=== PATIENT | male | born 1965 | race Caucasian/White ===

== ENCOUNTER 2025-08-18 19:09 | Inpatient (IN) ==
[2025-08-18 20:40] LABS: Hematocrit (blood only) 53.8 % (42.0-52.0); Hemoglobin 18.3 g/dL (14.0-18.0); Immature Granulocytes # (auto) 0.04 K/uL (0.01-0.20); Immature Granulocytes % (auto) 0.3 %; Mean Corpuscular Hemoglobin 30.8 pg (25.0-34.0); Mean Corpuscular Volume 90.4 fL (80.0-100.0); Platelet Count 302 K/uL (130-400); RDW Standard Deviation 47.0 fL (36.4-46.3); Red Blood Count 5.95 M/uL (4.70-6.10); White Blood Count 11.48 K/ul (4.8-10.8)
[2025-08-18 20:58] LABS: Alanine Aminotransferase 20.0 U/L (7-52); Albumin Globulin Ratio 1.2 (0.9-2); Albumin Level 4.2 gm/dl (3.4-5.0); Alkaline Phosphatase 57.0 U/L (34-104); Anion Gap 8.0 (3-11); Bilirubin,Total 0.4 mg/dl (0.2-1.0); Blood Urea Nitrogen 18.0 mg/dl (6-23); Calcium 9.0 mg/dl (8.6-10.3); Carbon Dioxide 26.0 mmol/L (21-32); Chloride 104.0 mmol/L (98-107); Creatinine Clr Calc Pharmacy 109.3 ml/min; Globulin 3.6 gm/dl (2.5-4.0); Glucose 132.0 mg/dl (70-99(Fasting)); Potassium 4.0 mmol/L (3.5-5.1); Sodium 138.0 mmol/L (136-145); Total Protein 7.8 gm/dl (6.0-8.3)
[2025-08-18 21:12] LABS: INR 0.9 (0.9-1.1); Partial Thromboplastin Time 28 Seconds (21-31); Prothrombin Time 9.8 Seconds (9.0-12.0)
[2025-08-18] MEDS: METOPROLOL TARTRATE 1 MG/ML VIAL IV STA (21:21)
[2025-08-18] MEDS: ASPIRIN CHEW 324 MG PO STA (21:21)
--- NOTE | 2025-08-18 21:21 | Emergency Department Note ---
Impression & Plan Chest pain, Elevated troponin I level, Acute non-ST elevation myocardial infarction (NSTEMI) ED Provider Note NAME: RACHAEL TA AGE: 59 SEX: M : 1965 ARRIVES VIA: Walk-In INFORMANT: Patient, ED PROVIDER(S): Cody Bruner DO CHIEF COMPLAINT: Chest pain HPI: The patient is a 59-year-old male who presented to the emergency department for an evaluation of chest pain. The patient describes episode that he had today of substernal chest pain. It was associate with diaphoresis as well as radiation to both arms and the neck. The patient states that this pain was not continuous. He has no pain at this time. He does have a strong family history of early coronary artery disease. He also has a history of tobacco use. The patient does not take any medications at this time. He has not seen a family doctor in a long time. He denies having any back pain or abdominal pain. ROS: See above HPI for pertinent positives & negatives. A total of 10 systems reviewed and were otherwise negative. PAST MEDICAL HISTORY: See Below PAST SURGICAL HISTORY: See Below FAMILY HISTORY: See Below SOCIAL HISTORY: See Below HOME MEDICATIONS: See Below ALLERGIES: See Below VITALS: See Below PHYSICAL EXAMINATION: GENERAL: Patient is awake alert in no acute distress patient is resting comfortably and showing no signs of anxiety EYES: The conjunctivae are clear. The pupils are round and reactive. EARS, NOSE, MOUTH AND THROAT: The nose is without any evidence of any deformity. NECK: The neck is nontender and supple. RESPIRATORY: Normal respiratory effort is noted there is no evidence of wheezing rhonchi or rales CARDIOVASCULAR: Regular rate and rhythm noted there no murmurs rubs or gallops normal S1 normal S2. GASTROINTESTINAL: The abdomen is soft. Abdomen is nontender. MUSCULOSKELETAL/EXTREMITIES: There is no evidence of gross deformity full range of motion is noted in the hips and shoulders. SKIN: There is no obvious evidence of any rash. There are no petechiae, pallor or cyanosis noted. NEUROLOGIC: Patient is awake alert and oriented x3 MEDICAL DECISION MAKING: The patient is a 59-year-old male who presented to the emergency department for an evaluation of chest pain. The patient had multiple episodes of chest pain at that occurred while at rest. The patient describes it as substernal chest pain that radiated to his neck as well as both arms. He became very diaphoretic. The patient became pain-free prior to coming to the emergency department. The patient does have significant risk factors including family history as well as a history of tobacco use. He was hypertensive upon arrival to the emergency department. He was treated with beta-blockers as well as aspirin in the emergency department. The patient continued to be pain-free while in the emergency department. I discussed the patient's laboratory and radiographic studies with him. I discussed the limitations of the emergency department workup for chest pain with him. Ultimately he was felt to be a good candidate for inpatient management. [facility] Triage Nursing notes reviewed. Prior medical records reviewed Vital Signs: reviewed and remarkable for elevated blood pressure. Differential diagnosis: Cardiac ischemia, aortic dissection, pulmonary embolism, pneumothorax, pneumonia, pericarditis, myocarditis, esophageal rupture, GERD, cholecystitis, pancreatitis, musculoskeletal, as well as other pathologies. ER treatment provided: See below Diagnostics interpreted by me: ECG: EKG was obtained in the emergency department. My interpretation is normal sinus rhythm at 99 bpm. There is no ectopy. There is no acute ST segment abnormalities noted. QTc was 477 ms. Cardiac Monitoring: An order was placed for continuous cardiac monitoring. The monitor shows a rate of 76 bpm with sinus rhythm. Laboratory studies: As stated above and show below. Imaging studies: See below. Radiographic imaging was reviewed by myself Consultation(s): I discussed this case with Dr. Damico who [facility]. Past Med/Surg History Problem List (Updated 08/19/25 @ 10:49 by Cody Bruner DO) Acute non-ST elevation myocardial infarction (NSTEMI) (Acute) NSTEMI (non-ST elevated myocardial infarction) Elevated troponin I level (Acute) Chest pain (Acute) Chest pain Hypertension (Chronic) History of kidney stones (Chronic) Right distal ureteral calculus (Acute) Social History Smoking Status: Current every day smoker Tobacco Type: Cigarettes Second Hand Exposure: No; Do You Dip or Chew Tobacco: No; Hx Alcohol Use: No Hx Substance Use: Yes Preferred Language: Slovenian Communication Ability: Effective Naval Gunfire Spotter Required: No Beliefs That Will Affect Care: None Current Living Situation: Spouse Feels Safe at Home: Yes Assistive Devices: None Allergies Allergies Allergy/AdvReac Type Severity Reaction Status Date / Time amoxicillin Allergy Mild hives Verified 08/19/25 09:30 poison sumac extract Allergy Unknown Rash Verified 08/19/25 09:30 Home Meds Home Medications Medication Instructions Recorded Confirmed None (Patient States No Home Meds) ##0 01/14/12 Results & Data (ED) Vital Signs Vital Signs - 24 hr 08/18/25 19:18 08/18/25 21:16 08/18/25 21:21 Temperature 36.9 C Temperature Source Temporal Artery Scan Pulse Rate 101 H 77 Pulse Rate [Apical] 89 Respiratory Rate 19 20 Respiratory Effort / Characteristics Non-Labored Spontaneous Respiratory Depth Normal Respiratory Pattern Regular Blood Pressure 200/133 H 173/97 H Blood Pressure [Right Arm] 184/120 H Blood Pressure Mean 155 Blood Pressure Mean [Right Arm] 141 Blood Pressure Position Sitting Pulse Oximetry 98 97 Oxygen Delivery Method Room Air Room Air Sepsis Recent Fever Within 48 Hours No Sepsis New/Unexplained Change in Mental Status No Sepsis Action Taken by Nursing No Action Required 08/18/25 21:27 Temperature Temperature Source Pulse Rate 76 Pulse Rate [Apical] Respiratory Rate Respiratory Effort / Characteristics Respiratory Depth Respiratory Pattern Blood Pressure Blood Pressure [Right Arm] Blood Pressure Mean Blood Pressure Mean [Right Arm] Blood Pressure Position Pulse Oximetry Oxygen Delivery Method Sepsis Recent Fever Within 48 Hours Sepsis New/Unexplained Change in Mental Status Sepsis Action Taken by Long Term Medications Current Medication List: was personally reviewed by me Laboratory Data Attestation: I reviewed the patient's lab results. 08/19/25 04:30 08/19/25 04:30 Lab Results 08/18/25 Range/Units 19:35 WBC 11.48 H (4.8-10.8) K/ul RBC 5.95 (4.70-6.10) M/uL Hgb 18.3 H (14.0-18.0) g/dL Hct 53.8 H (42.0-52.0) % MCV 90.4 (80.0-100.0) fL MCH 30.8 (25.0-34.0) pg MCHC 34.0 (32.0-36.0) g/dL RDW Std Deviation 47.0 H (36.4-46.3) fL RDW Coeff of [place] 14.3 (11.5-14.5) % Plt Count 302 (130-400) K/uL MPV 10.1 (9.4-12.4) fL Immature Gran % (Auto) 0.3 % Neut % (Auto) 61.6 % Lymph % (Auto) 27.2 % Hood % (Auto) 7.1 % Eos % (Auto) 3.2 % Baso % (Auto) 0.6 % Neut # (Auto) 7.07 H (1.40-6.50) K/uL Lymph # (Auto) 3.12 (1.20-3.40) K/uL Hood # (Auto) 0.81 H (0.11-0.59) K/uL Eos # (Auto) 0.37 (0.00-0.50) K/uL Baso # (Auto) 0.07 (0.00-0.20) K/uL Immature Gran # (Auto) 0.04 (0.01-0.20) K/uL PT 9.8 (9.0-12.0) Seconds INR 0.9 (0.9-1.1) APTT 28 (21-31) Seconds PTT Ratio 1.0 Sodium 138 (136-145) mmol/L Potassium 4.0 (3.5-5.1) mmol/L Chloride 104 (98-107) mmol/L Carbon Dioxide 26 (21-32) mmol/L Anion Gap 8 (3-11) BUN 18 (6-23) mg/dl Creatinine 0.90 (0.6-1.4) mg/dl Est Cr Clr Drug Dosing 109.3 ml/min eGFR 99.00 BUN/Creatinine Ratio 20.0 (10-20) Glucose 132 H (70-99(Fasting)) mg/dl Calcium 9.0 (8.6-10.3) mg/dl Total Bilirubin 0.4 (0.2-1.0) mg/dl AST 17 (13-39) U/L ALT 20 (7-52) U/L Alkaline Phosphatase 57 (34-104) U/L Troponin I High Sens 59.0 H* (0-20) pg/ml Total Protein 7.8 (6.0-8.3) gm/dl Albumin 4.2 (3.4-5.0) gm/dl Globulin 3.6 (2.5-4.0) gm/dl Albumin/Globulin Ratio 1.2 (0.9-2) Administered Medications Acetaminophen (Acetaminophen 325 Mg Tab) 650 mg PO Q4H PRN PRN Reason: Pain or Fever Stop: 09/17/25 22:42 Last Admin: 08/19/25 07:26 Dose: 650 mg Documented By: Aspirin (Aspirin 81 Mg Ectab) 81 mg PO QAM [facility] Stop: 09/18/25 08:59 Last Admin: 08/19/25 08:06 Dose: 81 mg Documented By: NAIZA Heparin Sodium/Dextrose (Heparin 66631 Unit/500 Ml D5w) 25,000 units in 500 mls @ 31 mls/hr IV .Q16H8M [facility]; Protocol Stop: 09/18/25 00:44 Last Titration: 08/19/25 08:38 Dose: 1,550 units/hr, 31 mls/hr Documented By: NAZIA Co-signed By: JUANI Admin: 08/19/25 01:24 Dose: 1,550 units/hr, 31 mls/hr Documented By: jhonatan Co-signed By: SARITHA Nitroglycerin (Nitroglycerin 2% Ointment 30gm Tube) 0.5 inch EXT Q6H [facility] Stop: 09/17/25 22:59 Last Admin: 08/19/25 06:05 Dose: 0.5 inch Documented By: jhonatan Admin: 08/19/25 00:33 Dose: 0.5 inch Documented By: jhonatan Discontinued Medications Aspirin (Aspirin Chew 324 Mg) 324 mg PO NOW STA Stop: 08/18/25 21:19 Last Admin: 08/18/25 21:21 Dose: 324 mg Documented By: megan Fentanyl Citrate (Fentanyl Citrate Pf 100 Mcg/2 Ml Vial) Confirm Administered Dose 100 mcg .ROUTE .STK-MED ONE Stop: 08/19/25 09:28 Last Increment: 08/19/25 10:38 Dose: 75 mcg Documented By: WINTER Heparin Sodium (Porcine) (Heparin Sod (Porcine) 1000 Unit/Ml) 7,000 units IV NOW ONE Stop: 08/19/25 00:42 Last Admin: 08/19/25 01:21 Dose: 7,000 units Documented By: jhonatan Co-signed By: SARITHA Heparin Sodium (Porcine) (Heparin (Porcine) 1000 Unit/Ml 10 Ml (Transportation Engineer Use Only)) Confirm Administered Dose 10,000 units .ROUTE .STK-MED ONE Stop: 08/19/25 09:27 Last Admin: 08/19/25 10:37 Dose: 9,500 units Documented By: WINTER Heparin Sodium/Dextrose (Heparin Iv Adult Wt-Based Standard W/ Initial Bolus Protocol) 1 each IV NOW STA; Protocol Stop: 08/19/25 00:26 Last Admin: 08/19/25 01:28 Dose: 1 each Documented By: jhonatan Heparin Sodium/Sodium Chloride (Heparin In Nss Infusion 1000 Unit/500 Ml (2 U/Ml) Bag) Confirm Administered Dose 3,000 units IV .STK-MED ONE Stop: 08/19/25 09:28 Last Admin: 08/19/25 09:51 Dose: 3,000 units Documented By: WINTER Hydralazine HCl (Hydralazine Hcl 20 Mg/Ml Vial) Confirm Administered Dose 20 mg .ROUTE .STK-MED ONE Stop: 08/19/25 10:22 Last Increment: 08/19/25 10:38 Dose: 10 mg Documented By: WINTER Ioversol (Optiray 350) Confirm Administered Dose 1 ml .ROUTE .STK-MED ONE Stop: 08/19/25 09:28 Last Admin: 08/19/25 10:38 Dose: 150 ml Documented By: WINTER Metoprolol Tartrate (Metoprolol Tartrate 1 Mg/Ml Vial) 5 mg IV NOW STA Stop: 08/18/25 21:19 Last Admin: 08/18/25 21:21 Dose: 5 mg Documented By: megan Midazolam HCl (Midazolam Hcl 1 Mg/Ml 2ml Vial) Confirm Administered Dose 2 mg .ROUTE .STK-MED ONE Stop: 08/19/25 09:27 Last Increment: 08/19/25 10:37 Dose: 1 mg Documented By: WINTER Midazolam HCl (Midazolam Hcl 1 Mg/Ml 2ml Vial) Confirm Administered Dose 2 mg .ROUTE .STK-MED ONE Stop: 08/19/25 10:21 Last Admin: 08/19/25 10:38 Dose: 2 mg Documented By: WINTER Nicardipine HCl (Nicardipine 2,000 Mcg/20 Ml Syr) Confirm Administered Dose 2,000 mcg .ROUTE .STK-MED ONE Stop: 08/19/25 09:28 Last Admin: 08/19/25 09:52 Dose: 2,000 mcg Documented By: WINTER Nitroglycerin/Dextrose (Nitroglycerin/D5w 100mcg/Ml 20ml Syr) Confirm Administered Dose 2,000 mcg .ROUTE .STK-MED ONE Stop: 08/19/25 09:28 Last Admin: 08/19/25 09:52 Dose: 2,000 mcg Documented By: WINTER Ticagrelor (Ticagrelor 90 Mg Tab) Confirm Administered Dose 180 mg .ROUTE .STK- MED ONE Stop: 08/19/25 10:34 Last Admin: 08/19/25 10:39 Dose: 180 mg Documented By: WINTER Imaging Data Attestation: I personally reviewed and interpreted this imaging study as follows: My Impression: 1 view chest x-ray was obtained in the emergency department. My interpretation is no free air or definite infiltrate, final report below. Radiologist's Impression: Chest X-Ray 08/18/25 20:20 Exam(s): XR CXR 1 VIEW EXAM: XR Chest, 1 View CLINICAL HISTORY: Reason for exam: Chest pain, nonspecific. TECHNIQUE: Frontal view of the chest. COMPARISON: No relevant prior studies available. FINDINGS: Lungs: No consolidation. No overt edema. Pleural space: No pleural effusion. No pneumothorax. Heart: Unremarkable. No cardiomegaly. IMPRESSION: No acute cardiopulmonary abnormality. Electronically signed by: Nazario Bassett MD 08/18/25 22:24 PM Discharge Plan Visit Data Chief Complaint: Chest Pain Stated Complaint: CHEST PAIN PAST HR, SLIGHT SOB, ARM PAIN (BOTH) ED Provider: Cody Bruner Discharge Problem: Chest pain, Elevated troponin I level, Acute non-ST elevation myocardial infarction (NSTEMI) Patient Disposition: Being Evaluated by Hospitalist Condition: Fair Discharge Instructions Interventions: ED Discharge Assessment Last Done: 08/18/25 22:44
--- NOTE | 2025-08-18 22:25 | XRay Report ---
Exam(s): XR CXR 1 VIEW EXAM: XR Chest, 1 View CLINICAL HISTORY: Reason for exam: Chest pain, nonspecific. TECHNIQUE: Frontal view of the chest. COMPARISON: No relevant prior studies available. FINDINGS: Lungs: No consolidation. No overt edema. Pleural space: No pleural effusion. No pneumothorax. Heart: Unremarkable. No cardiomegaly. IMPRESSION: No acute cardiopulmonary abnormality. Electronically signed by: Nazario Bassett MD 08/18/25 22:24 PM
[2025-08-18] MEDS ORDERED: NITROGLYCERIN SL 0.4 MG/TAB TAB SL PRN (22:43)
[2025-08-18] MEDS ORDERED: POLYETHYLENE (MIRALAX) 17 GM PACK PO PRN (22:43)
--- NOTE | 2025-08-18 22:51 | History & Physical Report ---
Date of Service August 18, 2025 Assessment & Plan (1) Chest pain: Plan: 59-year-old male with no significant past medical history except for kidney stones and not on any medications and not been to doctors since last 2 years since his PCP retired comes with chest pain. Around 6:30 PM today patient was watching TV when he noticed pain in the middle of the chest radiating to his neck and to his right upper hand and it was about 9/10 in severity. The pain l asted about 1 hour. Currently patient does not have any pain. Patient had similar kind of episode couple of weeks ago thought to be indigestion and lasted about 1 hour. Does not ambulate much because of hip and knee pains. Denies shortness of breath. Has smoker's cough. No runny nose or sore throat. Afebrile. Has some mild headache. During the episode felt dizzy. Somewhat sweaty. No nausea. No abdominal pain. Normal bowel and bladder movements. Blood pressure was high when he came to the ER. And received IV Lopressor. Also received aspirin. Resting comfortably currently. Chest pain Currently resolved EKG okay Initial troponin 59. Recheck trending up. On IV heparin Received full dose aspirin and IV Lopressor in the ER Will continue with daily aspirin, and Nitropaste for now Will follow serial cardiac enzymes and echo Will check lipid profile and HbA1c levels in a.m. Telemetry N.p.o. Cardio consult in a.m. Hypertension Elevated in 200s on presentation Received IV Lopressor Will place on Nitropaste and monitor Tobacco abuse Counseling Elevated hemoglobin 18.3 Possibly from smoking Will follow repeat labs DVT prophylaxis SCDs Disposition Telemetry Full code. History of Present Illness Chief Complaint: Chest pain Primary Care Provider: NO PCP 59-year-old male with no significant past medical history except for kidney stones and not on any medications and not been to doctors since last 2 years since his PCP retired comes with chest pain. Around 6:30 PM today patient was watching TV when he noticed pain in the middle of the chest radiating to his neck and to his right upper hand and it was about 9/10 in severity. The pain lasted about 1 hour. Currently patient does not have any pain. Patient had similar kind of episode couple of weeks ago thought to be indigestion and lasted about 1 hour. Does not ambulate much because of hip and knee pains. Denies shortness of breath. Has smoker's cough. No runny nose or sore throat. Afebrile. Has some mild headache. During the episode felt dizzy. Somewhat sweaty. No nausea. No abdominal pain. Normal bowel and bladder movements. Blood pressure was high when he came to the ER. And received IV Lopressor. Also received aspirin. Resting comfortably currently. Past medical history. As mentioned above. Past surgical history. No surgeries on file Social history. Smokes 1 pack cigarettes for many years. Denies any alcohol. Smokes marijuana daily. Family history. Father age of 45 probably from heart disease. Mother has hypertension, pacemaker, amputation of both lower extremities from peripheral vascular disease. Allergies Allergy/AdvReac Type Severity Reaction Status Date / Time amoxicillin Allergy Mild hives Verified 02/26/16 08:40 poison sumac extract Allergy Unknown Rash Verified 08/18/25 22:48 Home Medications Medication Instructions Recorded Confirmed Type None (Patient States No Home Meds) ##0 01/14/12 History Past Med/Surg History Problem List (Updated 08/18/25 @ 23:08 by Cody Bruner DO) Elevated troponin I level (Acute) Chest pain (Acute) Chest pain Hypertension (Chronic) History of kidney stones (Chronic) Right distal ureteral calculus (Acute) Social History Smoking Status: Current every day smoker Tobacco Type: Cigarettes Second Hand Exposure: No; Do You Dip or Chew Tobacco: No; Hx Alcohol Use: No Hx Substance Use: Yes Preferred Language: Tuvaluan Communication Ability: Effective Staff Development Coordinator Rn Required: No Beliefs That Will Affect Care: None Current Living Situation: Spouse Other Information That Helps Us Care for You: No Feels Safe at Home: Yes Safety Concerns: Feels Safe At This Time Assistive Devices: None Review of Systems Review of Systems: All systems reviewed & are unremarkable except as noted in HPI & below Physical Exam Physical Exam: General- Not in distress. Head- atraumatic Eyes- PERRL. ENT- oropharynx clear Neck- supple, no JVD. Lungs- clear to auscultation no wheezing or crackles Heart- regular rhythm; no murmur, no gallop. Abdomen- normal bowel sounds, soft, nontender, no distension. Extremities- no pretibial edema, no erythema seen. Neuro- alert, oriented PERRL, no facial palsy; no dysarthria; moves extremities Results & Data Results & Data Vital Signs (Past 12 Hours) Vital Signs Temp Pulse Pulse Resp BP BP Pulse Ox 08/18/25 21:27 76 08/18/25 21:21 77 173/97 H 08/18/25 21:16 89 20 184/120 H 97 08/18/25 19:18 36.9 C 101 H 19 200/133 H 98 O2 Del Method 08/18/25 21:27 08/18/25 21:21 08/18/25 21:16 Room Air 08/18/25 19:18 Room Air Diagnostic Findings Laboratory Results WBC 11.48 K/ul (4.8-10.8) H 08/18/25 19:35 RBC 5.95 M/uL (4.70-6.10) 08/18/25 19:35 Hgb 18.3 g/dL (14.0-18.0) H 08/18/25 19:35 Hct 53.8 % (42.0-52.0) H 08/18/25 19:35 MCV 90.4 fL (80.0-100.0) 08/18/25 19:35 MCH 30.8 pg (25.0-34.0) 08/18/25 19:35 MCHC 34.0 g/dL (32.0-36.0) 08/18/25 19:35 RDW Std Deviation 47.0 fL (36.4-46.3) H 08/18/25 19:35 RDW Coeff of [place] 14.3 % (11.5-14.5) 08/18/25 19:35 Plt Count 302 K/uL (130-400) 08/18/25 19:35 MPV 10.1 fL (9.4-12.4) 08/18/25 19:35 Immature Gran % (Auto) 0.3 % 08/18/25 19:35 Neut % (Auto) 61.6 % 08/18/25 19:35 Lymph % (Auto) 27.2 % 08/18/25 19:35 Mcleod % (Auto) 7.1 % 08/18/25 19:35 Eos % (Auto) 3.2 % 08/18/25 19:35 Baso % (Auto) 0.6 % 08/18/25 19:35 Neut # (Auto) 7.07 K/uL (1.40-6.50) H 08/18/25 19:35 Lymph # (Auto) 3.12 K/uL (1.20-3.40) 08/18/25 19:35 Mcleod # (Auto) 0.81 K/uL (0.11-0.59) H 08/18/25 19:35 Eos # (Auto) 0.37 K/uL (0.00-0.50) 08/18/25 19:35 Baso # (Auto) 0.07 K/uL (0.00-0.20) 08/18/25 19:35 Immature Gran # (Auto) 0.04 K/uL (0.01-0.20) 08/18/25 19:35 PT 9.8 Seconds (9.0-12.0) 08/18/25 19:35 INR 0.9 (0.9-1.1) 08/18/25 19:35 APTT 28 Seconds (21-31) 08/18/25 19:35 PTT Ratio 1.0 08/18/25 19:35 Sodium 138 mmol/L (136-145) 08/18/25 19:35 Potassium 4.0 mmol/L (3.5-5.1) 08/18/25 19:35 Chloride 104 mmol/L (98-107) 08/18/25 19:35 Carbon Dioxide 26 mmol/L (21-32) 08/18/25 19:35 Anion Gap 8 (3-11) 08/18/25 19:35 BUN 18 mg/dl (6-23) 08/18/25 19:35 Creatinine 0.90 mg/dl (0.6-1.4) 08/18/25 19:35 Est Cr Clr Drug Dosing 109.3 ml/min 08/18/25 19:35 eGFR 99.00 08/18/25 19:35 BUN/Creatinine Ratio 20.0 (10-20) 08/18/25 19:35 Glucose 132 mg/dl (70-99(Fasting)) H 08/18/25 19:35 Calcium 9.0 mg/dl (8.6-10.3) 08/18/25 19:35 Total Bilirubin 0.4 mg/dl (0.2-1.0) 08/18/25 19:35 AST 17 U/L (13-39) 08/18/25 19:35 ALT 20 U/L (7-52) 08/18/25 19:35 Alkaline Phosphatase 57 U/L (34-104) 08/18/25 19:35 Troponin I High Sens 59.0 pg/ml (0-20) H* 08/18/25 19:35 Total Protein 7.8 gm/dl (6.0-8.3) 08/18/25 19:35 Albumin 4.2 gm/dl (3.4-5.0) 08/18/25 19:35 Globulin 3.6 gm/dl (2.5-4.0) 08/18/25 19:35 Albumin/Globulin Ratio 1.2 (0.9-2) 08/18/25 19:35 Impressions Chest X-Ray 08/18/25 20:20 Exam(s): XR CXR 1 VIEW EXAM: XR Chest, 1 View CLINICAL HISTORY: Reason for exam: Chest pain, nonspecific. TECHNIQUE: Frontal view of the chest. COMPARISON: No relevant prior studies available. FINDINGS: Lungs: No consolidation. No overt edema. Pleural space: No pleural effusion. No pneumothorax. Heart: Unremarkable. No cardiomegaly. IMPRESSION: No acute cardiopulmonary abnormality. Electronically signed by: Nazario Bassett MD 08/18/25 22:24 PM ECG Additional Comments: ECG. Normal sinus rhythm rate of 99. No acute ST changes seen. QTc 477. Code Status & VTE Plan VTE Prophylaxis Plan VTE Prophylaxis will be ordered: Yes
[2025-08-19] MEDS: NITROGLYCERIN 2% OINTMENT 30GM TUBE EXT SCH (00:33)
[2025-08-19] MEDS: HEPARIN SOD (PORCINE) 1000 UNIT/ML IV ONE (01:21)
[2025-08-19] MEDS: HEPARIN 25000 UNIT/500 ML D5W 25,000 UNITS/500 ML BAG IV SCH (01:24)
[2025-08-19] MEDS: Heparin IV Adult Wt-Based Standard w/ INITIAL Bolus Protocol IV STA (01:28)
[2025-08-19 05:43] LABS: Hematocrit (blood only) 50.0 % (42.0-52.0); Hemoglobin 17.6 g/dL (14.0-18.0); Immature Granulocytes # (auto) 0.04 K/uL (0.01-0.20); Immature Granulocytes % (auto) 0.4 %; Mean Corpuscular Hemoglobin 31.7 pg (25.0-34.0); Mean Corpuscular Volume 90.1 fL (80.0-100.0); Platelet Count 279 K/uL (130-400); RDW Standard Deviation 46.5 fL (36.4-46.3); Red Blood Count 5.55 M/uL (4.70-6.10); White Blood Count 10.94 K/ul (4.8-10.8)
[2025-08-19 06:04] LABS: Anion Gap 9.0 (3-11); Blood Urea Nitrogen 16.0 mg/dl (6-23); Calcium 8.4 mg/dl (8.6-10.3); Carbon Dioxide 24.0 mmol/L (21-32); Chloride 106.0 mmol/L (98-107); Cholesterol 205.0 mg/dl (0-200); Creatinine Clr Calc Pharmacy 136.6 ml/min; Glucose 101.0 mg/dl (70-99(Fasting)); HDL Cholesterol 29.0 mg/dl; Magnesium 2.0 mg/dl (1.7-2.4); Potassium 4.0 mmol/L (3.5-5.1); Sodium 139.0 mmol/L (136-145); Triglycerides 195.0 mg/dl (0-150)
[2025-08-19] MEDS: ACETAMINOPHEN 325 MG TAB PO PRN (07:26)
[2025-08-19 07:49] LABS: Hemoglobin A1C 6.0 % (4.5-5.6)
[2025-08-19] MEDS: ASPIRIN 81 MG ECTAB PO SCH (08:06)
[2025-08-19 08:24] LABS: ANTI-Xa, UFH(UnfractionatedHep 0.41 IU/ml (0.3-0.7)
--- NOTE | 2025-08-19 08:25 | Cardiology Consultation ---
Date of Consultation August 19, 2025 Assessment & Plan (1) NSTEMI (non-ST elevated myocardial infarction): (2) Elevated troponin I level: (3) Chest pain: (4) Hypertension: Plan Patient is a 59 year old male admitted to [facility] after substernal chest pain/pressure radiating down both arms. No acute ischemic EKG changes. No ST elevation. Elevated troponin noted, peaking at 225. Started on IV heparin. Echo with mildly reduced LVEF with apical anterior and apical lateral wall motion abnormality concerning for ischemic heart disease Uncontrolled hypertension also noted on arrival, improving with IV metoprolol and nitro paste Patient seen/evaluated today in collaboration with attending hall manager Dr. Sanderson. Given his symptoms, abnormal echo, and elevated troponin, recommend proceeding with diagnostic cardiac catheterization for further evaluation. Risks/benefits of procedure discussed. Patient is agreeable and understanding. He remains NPO. Case was then discussed with SC goggles assembler, Dr. Sears. Cardiac cath planned for this morning. Will likely need ASA, statin, antiplatelet therapy, and other GDMT after cath. Further recommendations pending results of cardiac catheterization I spent a total of 60 minutes on the date of service in preparation, delivery, and documentation of the care provided to this patient, excluding any time spent in the performance of separately billed services. Eva Milian PA-C Department of Cardiology, [facility] This chart was completed in part utilizing Speech Voice Recognition Software. Grammatical errors, random word insertions, pronoun errors, and incomplete sentences are an occasional consequence of this system due to software limitations, ambient noise, and hardware issues. Any formal questions or concerns about the content, text, or information contained within the body of this dictation should be directly addressed to the provider for clarification. Supervising Physician Co-Signing Physician Notes Patient seen and examined. Past medical history, surgical history, social history and family history have been reviewed. The medical record and all the above studies have been reviewed. Case DW JEAN PAUL including management. NSTEMI HTN - accelerated HLD ASA, IV Heparin, statin metoprolol Losartan cardiac cath procedure, RIBA dw patient -> he understands and agrees to proceed Case DW goggles assembler -> agreed for card cath and possible PCI adjust anti-HTN meds keeping systolic BP between 100-140 mmHg DVT prophylaxis smoking cessation salt restricted diet GDMT for CAD History of Present Illness Reason for Consultation: Chest pain; Elevated troponin Requesting Physician: [facility] Attending Physician: Dr. Sanderson History of Present Illness Patient is a 59-year-old male presenting to [facility] last night after an episode of substernal chest pain radiating down both arms lasting approximately 15 minutes. Symptoms occurred at rest. Resolved spontaneously. He also reported shortness of breath and diaphoresis with the episode. He had a similar episode occurring about 1-2 weeks ago, also lasting 10-15 minutes at rest. He thought he had "indigestion". He as not been to see his family physician since they retired nearly 2 years ago. Previously told he had high BP and dyslipidemia but declined medications. Managed with "diet". He notes chronic tobacco abuse, smoking 1.5 PPD. Family history of possible premature CAD/SCD in his father age 45. Due to his severe chest pain last night he presented to the ER for evaluation. EKG on arrival demonstrating NSR, no acute ischemic changes noted. No prior for comparison. BP was uncontrolled at 200/130 on arrival. Treated with ASA, nitro paste, metoprolol on arrival. BP slowly trended down. HS troponin was elevated at 59 - increasing to 225 - and then 201 this morning. He was started on IV heparin for NSTEMI. Chest pain had resolved at time of presentation to the ER, but he notes b/l shoulder "ache/tightness". At time of consult, patient resting in bed comfortably. No recurrent chest pain overnight. He does admit to being clammy and diaphoretic this morning. BP much improved. No dizziness or lightheadedness. No arrhythmias on telemetry No orthopnea, PND or edema. No bleeding issues. Hbg stable. Normal creatinine. Allergies Allergy/AdvReac Type Severity Reaction Status Date / Time amoxicillin Allergy Mild hives Verified 08/19/25 09:30 poison sumac extract Allergy Unknown Rash Verified 08/19/25 09:30 Home Medications Medication Instructions Recorded Confirmed Type None (Patient States No Home Meds) ##0 01/14/12 History Patient History Social History Smoking Status: Current every day smoker Tobacco Type: Cigarettes Second Hand Exposure: No; Do You Dip or Chew Tobacco: No; Hx Alcohol Use: No Hx Substance Use: Yes Preferred Language: Thai Communication Ability: Effective Key Punch Teacher Required: No Beliefs That Will Affect Care: None Current Living Situation: Spouse Feels Safe at Home: Yes Assistive Devices: Cane Review of Systems Review of Systems: All systems reviewed & are unremarkable except as noted in HPI & below Physical Exam Constitutional: WD/WN, vitals as above average body habitus; no acute distress Neck: trachea midline, no thyromegaly + thick neck Respiratory: normal respiratory effort; no labored breathing Auscultation: lungs clear to auscultation bilaterally Gastrointestinal (Abdomen): normal bowel sounds, soft, nontender, no hepatosplenomegaly Neurologic: PERRL, EOMI, accommodation nl, no face palsy, no dysarthria Psychiatric: A+Ox3, euthymic affect Results & Data Vital Signs (Past 12 Hours) Vital Signs Pulse Pulse Resp BP BP Pulse Ox Pulse Ox 08/19/25 08:05 70 122/67 08/19/25 07:49 69 08/19/25 06:05 72 20 136/78 93 08/19/25 02:00 08/19/25 02:00 71 20 159/85 H 92 08/19/25 01:28 84 157/90 H 95 08/19/25 01:08 71 08/19/25 00:47 08/19/25 00:23 95 08/19/25 00:23 69 16 172/99 H 95 08/18/25 21:27 76 08/18/25 21:21 77 173/97 H 08/18/25 21:16 89 20 184/120 H 97 O2 Del Method O2 Del Method 08/19/25 08:05 08/19/25 07:49 08/19/25 06:05 Room Air 08/19/25 02:00 Room Air 08/19/25 02:00 Room Air 08/19/25 01:28 Room Air 08/19/25 01:08 08/19/25 00:47 Room Air 08/19/25 00:23 Room Air 08/19/25 00:23 Room Air 08/18/25 21:27 08/18/25 21:21 08/18/25 21:16 Room Air Laboratory Results Cardiac Enzymes 08/18/25 08/18/25 08/19/25 Range/Units 19:35 22:41 04:30 AST 17 (13-39) U/L Troponin I High Sens 59.0 H* 225.1 H* D 201.7 H* (0-20) pg/ml Coagulation 08/18/25 Range/Units 19:35 PT 9.8 (9.0-12.0) Seconds APTT 28 (21-31) Seconds Lipids 08/19/25 Range/Units 04:30 Triglycerides 195 H (0-150) mg/dl Cholesterol 205 H (0-200) mg/dl HDL Cholesterol 29 mg/dl Cholesterol/HDL Ratio 7.1 H (0-5) CBC 08/18/25 08/19/25 Range/Units 19:35 04:30 WBC 11.48 H 10.94 H (4.8-10.8) K/ul RBC 5.95 5.55 (4.70-6.10) M/uL Hgb 18.3 H 17.6 (14.0-18.0) g/dL Hct 53.8 H 50.0 (42.0-52.0) % Plt Count 302 279 (130-400) K/uL Neut # (Auto) 7.07 H 5.34 (1.40-6.50) K/uL Lymph # (Auto) 3.12 4.33 H (1.20-3.40) K/uL [place] # (Auto) 0.81 H 0.68 H (0.11-0.59) K/uL Eos # (Auto) 0.37 0.47 (0.00-0.50) K/uL Baso # (Auto) 0.07 0.08 (0.00-0.20) K/uL Comprehensive Metabolic Panel 08/18/25 08/19/25 Range/Units 19:35 04:30 Sodium 138 139 (136-145) mmol/L Potassium 4.0 4.0 (3.5-5.1) mmol/L Chloride 104 106 (98-107) mmol/L Carbon Dioxide 26 24 (21-32) mmol/L BUN 18 16 (6-23) mg/dl Creatinine 0.90 0.72 (0.6-1.4) mg/dl Glucose 132 H 101 H (70-99(Fasting)) mg/dl Calcium 9.0 8.4 L (8.6-10.3) mg/dl AST 17 (13-39) U/L ALT 20 (7-52) U/L Alkaline Phosphatase 57 (34-104) U/L Total Protein 7.8 (6.0-8.3) gm/dl Albumin 4.2 (3.4-5.0) gm/dl Intake and Output 08/18/25 08/19/25 08/19/25 22:59 06:59 14:59 Intake Total 224.233 / 224.233 Balance 224.233 / 224.233 Intake: IV 224.233 / 224.233 Heparin 51853 Unit/500 ml D5w 224.233 / 224.233 25,000 units In 500 ml @ 1,550 UNITS/HR 31 mls/hr IV .Q16H8M [facility] Rx#:[id number] Other: Weight 106.4 kg 106.4 kg Weight Measurement Method Chair Scale [facility] Diagnostic Findings Telemetry reviewed: NSR, no arrhythmias noted. EKG reviewed from admission, 08/18: NSR, normal EKG No prior for comparison Echo report reviewed: Mildly reduced LVEF at 45-50% Grade I diastolic dysfunction Apical anterior akinesis, apical lateral severe hypokinesis, apical akinesis Mild MR Chest X-Ray 08/18/25 20:20 Exam(s): XR CXR 1 VIEW EXAM: XR Chest, 1 View CLINICAL HISTORY: Reason for exam: Chest pain, nonspecific. TECHNIQUE: Frontal view of the chest. COMPARISON: No relevant prior studies available. FINDINGS: Lungs: No consolidation. No overt edema. Pleural space: No pleural effusion. No pneumothorax. Heart: Unremarkable. No cardiomegaly. IMPRESSION: No acute cardiopulmonary abnormality. Electronically signed by: Nazario Bassett MD 08/18/25 22:24 PM Medications Administered Current Inpatient Medications Acetaminophen (Acetaminophen 325 Mg Tab) 650 mg PO Q4H PRN PRN Reason: Pain or Fever Stop: 09/17/25 22:42 Last Admin: 08/19/25 07:26 Dose: 650 mg Aspirin (Aspirin 81 Mg Ectab) [facility] [place] Stop: 09/18/25 08:59 Last Admin: 08/19/25 08:06 Dose: 81 mg Heparin Sodium/Dextrose (Heparin 65137 Unit/500 Ml D5w) 25,000 units in 500 mls @ 31 mls/hr IV .Q16H8M [facility]; Protocol Stop: 09/18/25 00:44 Last Titration: 08/19/25 08:38 Dose: 1,550 units/hr, 31 mls/hr Nitroglycerin (Nitroglycerin Sl 0.4 Mg/Tab Tab) 0.4 mg SL Q5M PRN PRN Reason: Chest Pain Stop: 09/17/25 22:42 Nitroglycerin (Nitroglycerin 2% Ointment 30gm Tube) 0.5 inch EXT Q6H NAT Stop: 09/17/25 22:59 Last Admin: 08/19/25 06:05 Dose: 0.5 inch Polyethylene Glycol (Polyethylene (Miralax) 17 Gm Pack) 17 gm PO DAILY PRN PRN Reason: Constipation Stop: 09/17/25 22:42 PG Care Time/CCT Total # of Minutes Spent Total Time Spent with Patient: Total time spent is greater than 50% in coordination of care (as documented) at patient's floor/unit and/or counseling patient: 60 minutes Coding Level of Care Code 34918 IN/OBS CONSULT LVL 5,80M Diagnoses NSTEMI (non-ST elevated myocardial infarction) I21.4 Elevated troponin I level R79.89 Chest pain R07.9 Hypertension I10
--- NOTE | 2025-08-19 08:25 | XCELERA ---
[id number]
--- NOTE | 2025-08-19 09:30 | Pre Anesthesia Assessment ---
Date of Service August 19, 2025 Pre Sedation Assessment Vital Signs Temp Pulse Pulse Resp BP BP Pulse Ox 08/19/25 09:18 69 18 157/83 H 94 08/19/25 09:00 69 16 154/89 H 94 08/19/25 08:05 70 122/67 08/19/25 07:49 69 08/19/25 06:05 72 20 136/78 93 08/19/25 02:00 08/19/25 02:00 71 20 159/85 H 92 08/19/25 01:28 84 157/90 H 95 08/19/25 01:08 71 08/19/25 00:47 08/19/25 00:23 08/19/25 00:23 69 16 172/99 H 95 08/18/25 21:27 76 08/18/25 21:21 77 173/97 H 08/18/25 21:16 89 20 184/120 H 97 08/18/25 19:18 36.9 C 101 H 19 200/133 H 98 Pulse Ox O2 Del Method O2 Del Method 08/19/25 09:18 Room Air 08/19/25 09:00 Room Air 08/19/25 08:05 08/19/25 07:49 08/19/25 06:05 Room Air 08/19/25 02:00 Room Air 08/19/25 02:00 Room Air 08/19/25 01:28 Room Air 08/19/25 01:08 08/19/25 00:47 Room Air 08/19/25 00:23 95 Room Air 08/19/25 00:23 Room Air 08/18/25 21:27 08/18/25 21:21 08/18/25 21:16 Room Air 08/18/25 19:18 Room Air Cardiovascular RRR, no murmur, no edema Respiratory normal respiratory effort, lungs clear to auscultation Pre-Sedation Airway Assessment Smoking Status: Current every day smoker Hx Sleep Apnea: No Short, Thick Neck: No Thyromental Distance: > or= 3.5 Finger Breadths Oral Cavity: + WNL Mallampati Class: III ASA: ASA3 NPO Status Date of Last Intake of Fluids: 08/19/25 Time of Last Intake of Fluids: 08:00 Date of Last Intake of Solid Food: 08/18/25 Time of Last Intake of Solid Foods: 16:00 Notes The planned sedation has been discussed with the patient. Informed Consent was obtained. I have identified the patient, determined the appropriateness of sedation and have assessed the patient immediately prior to the procedure. All medicine(s) and interventions are by my order.
[2025-08-19] MEDS: niCARdipine 2,000 MCG/20 ML SYR ONE (09:52)
[2025-08-19] MEDS: NITROGLYCERIN/D5W 100MCG/ML 20ML SYR ONE (09:52)
[2025-08-19] MEDS: MIDAZOLAM HCL 1 MG/ML 2ML VIAL ONE ×2 (10:37→10:38)
[2025-08-19] MEDS: HEPARIN (PORCINE) 1000 UNIT/ML 10 ML (CATH LAB USE ONLY) ONE (10:37)
[2025-08-19] MEDS: OPTIRAY 350 ONE (10:38)
[2025-08-19] MEDS: TICAGRELOR 90 MG TAB ONE (10:39)
--- NOTE | 2025-08-19 10:46 | Post Anesthesia Assessment ---
Date of Service August 19, 2025 Post Sedation Assessment Vital Signs Temp Pulse Pulse Resp BP BP Pulse Ox 08/19/25 09:18 69 18 157/83 H 94 08/19/25 09:00 69 16 154/89 H 94 08/19/25 08:05 70 122/67 08/19/25 07:49 69 08/19/25 06:05 72 20 136/78 93 08/19/25 02:00 08/19/25 02:00 71 20 159/85 H 92 08/19/25 01:28 84 157/90 H 95 08/19/25 01:08 71 08/19/25 00:47 08/19/25 00:23 08/19/25 00:23 69 16 172/99 H 95 08/18/25 21:27 76 08/18/25 21:21 77 173/97 H 08/18/25 21:16 89 20 184/120 H 97 08/18/25 19:18 36.9 C 101 H 19 200/133 H 98 Pulse Ox O2 Del Method O2 Del Method 08/19/25 09:18 Room Air 08/19/25 09:00 Room Air 08/19/25 08:05 08/19/25 07:49 08/19/25 06:05 Room Air 08/19/25 02:00 Room Air 08/19/25 02:00 Room Air 08/19/25 01:28 Room Air 08/19/25 01:08 08/19/25 00:47 Room Air 08/19/25 00:23 95 Room Air 08/19/25 00:23 Room Air 08/18/25 21:27 08/18/25 21:21 08/18/25 21:16 Room Air 08/18/25 19:18 Room Air Recovery Score Activity: Moves 4 extremities Respiration: Deep Breath/Cough Circulation: +/-20% PreAnes Value Consciousness: Fully Awake Oxygen Saturation: > 92% On Room Air Discharge Sedation Level of Care: Fast Track Phase II Post Sedation Plan On clinical assessment, the patient appears to have tolerated the sedation without complications. Patient is recovering as anticipated. Patient will continue to be monitored by nursing and may be discharged when sedation discharge criteria are met per below protocol. Upon Completions of procedure up to 15 minutes continue every 5 minute vital signs and the P.A.R. score; then discharge to a Phase I or Fast Track to Phase II per the following guidelines: * Discharge Patient to appropriate Phase II area if PAR is 8 or greater or return to pre- procedure baseline. The post - procedure orders will be as directed. * If PAR score is less than 8 or not return to pre-procedure baseline then patient will follow Phase I monitoring till PAR is reached for Phase II. The Phase I may be done in procedure room or may call to secure a Phase I area. * If naloxone or flumazenil are used for reversal, hold in Phase I for continued monitoring from when last reversal dose was given for a minimum of 60 minutes or longer pending the nurse and/or physician discretion of patient condition before discharge to Phase II. Please call the Sedation Physician to re-evaluate and complete post-note for discharge to Phase II area. Do NOT discharge from procedure sedation or Phase 1 until post- sedation evaluation note is complete by procedure /sedation MD Sedation Discharge Instructions to be given to the patient at discharge to home.
--- NOTE | 2025-08-19 11:18 | Cardiac Catheterization ---
[facility] Data: Rubber Goods Cutter Finisher Cardiac Status Clinical evaluation leading to the procedure CAD Presenation: Non STEMI Anginal Classification: CCS IV Heart Failure: No Cardiogenic Shock within 24 Hours: No Cardiac Arrest within 24 Hours: No Imaging Studies Past 6 Months: Yes (Echo) Stress Studies Past 6 Months: No Coronary Anatomy Dominant: Right Left Main (% Stenosis): Normal LAD (% Stenosis): Proximal (70% hazy plus thrombosis) D1 (% Stenosis): Normal D2 (% Stenosis): Normal Circumflex (% Stenosis): Ostial (40-50%) OM1 (% Stenosis): Normal RCA (% Stenosis): Proximal (40%) and Mid (30%) R PDA (% Stenosis): Normal R PL1 (% Stenosis): Normal Diagnostic Physicians Name: Eric Sears MD, PhD Closure Device Percutaneous Entry Location: Radial Closure Device: Radial Band Recommendations: Medical Therapy and/or Counseling and PCI without planned CABG PCI Indication: PCI for high risk Non-YADIRA Lesion Segment Name: Proximal LAD Culprit Artery: Yes Stenosis Prior to Rx (%): 70% Chronic Total Occlusion: No Pre-Procedure MEETA Flow: 2 Previously Treated Lesion: No Lesion Complexity: Non-High/Non-C Lesion Length (mm): 8 Thrombus Present: Yes Bifurcation Lesion: No Guidewire Across Lesion: Yes Intraprocedure Events Significant Disection: No Perforation: No Cardiac Cath Procedure Full Procedure Date August 19, 2025 Pre-Procedure Diagnosis Pre-Procedure Diagnosis: Non STEMI AUC Score AUC Score: 07 Post-Procedure Diagnosis Post-Procedure Diagnosis: Severe CAD and Successful PCI Procedure(s) Performed Procedure(s) Performed: Coronary Angiography, Drug Eluting Stent and Ultrasound Guided Vascular Access Equipment Planner Eric Sears MD, PhD Estimated Blood Loss Estimated Blood Loss: 5cc Medication(s) Medication(s): Fentanyl, Heparin, Hydralazine, Lidocaine 1%, Nicardipine, Nitroglycerin and Versed Summary of Findings Brief description: Patient was brought to the cardiac catheterization suite where he was shaved and prepped in a sterile fashion. Sedated using IV Versed and fentanyl. Soft tissues of the right wrist were anesthetized using 2 mL of 1% Xylocaine. Using the ultrasound for guidance (image saved), the right radial artery was accessed and a 6 Greek radial artery glide sheath was placed. Patient was provided anticoagulation with IV heparin and antispasmodics including nicardipine and nitroglycerin. All catheters were advanced and exchanged over a 0.035 J-tip wire. Patient was provided IV hydralazine for elevated blood pressure. Left coronary angiography in orthogonal views with a 5 Greek [place] 4 diagnostic catheter. Right coronary angiography in orthogonal views with a 5 Greek [place] 4 diagnostic catheter. Diagnostic catheters were removed. Decision was made to proceed with PCI of the proximal LAD. ACT was checked and additional heparin was provided throughout the case as needed to maintain therapeutic anticoagulation. 6 Greek EBU 3.0 guide catheter was used to engage the left main coronary. A BMW number so guidewire was advanced and positioned distally in the LAD. The lesion was predilated with a 2.5 x 12 mm trek balloon at 14 alana. A 2.75 x 15 mm [place] drug-eluting stent was then advanced and positioned across the lesion. Initially deployed at 12 alana with a second inflation to 14 alana. Stent balloon was removed and angiography was performed. The guidewire was removed and final angiographic evaluation was performed. Guide catheter was removed over the J-wire. Radial artery sheath was removed. Hemostasis was obtained using a TR band. Patient was hemodynamically stable and asymptomatic. He was returned to the recovery area in stable condition. This ended the case. Coronary angiography findings: [id number] vessel bifurcating into LAD and circumflex. Mild luminal irregularities. LAD-this is large caliber and transapical. The septal trauma occurs just after the origin of the circumflex. Proximal segment is relatively long before it reaches the first diagonal. Near the end of the proximal segment there is a h azy stenosis which appears to be a ruptured plaque with associated thrombus. Estimated stenosis of 70%. There is MEETA II flow in the LAD beyond this lesion. LAD then gives a large branching first diagonal followed by a medium caliber second diagonal. The mid and distal LAD have no more than luminal irregularities. LCx-this is medium caliber and nondominant. Travels in the AV groove. Ostially there is a 40 to 50% stenosis and then the vessel gives a high rising medium caliber OM1. This vessel is tortuous with luminal irregularities. The mid and distal AV groove circumflex becomes smaller and taper to termination. RCA-this is a very large caliber and dominant vessel. Proximal segment has 40% stenosis followed in the midsegment by 30% stenosis. Distal vessel remains large and bifurcates early into a large PDA and a large multi branching posterolateral. These vessels have no angiographically evident disease. PCI of LAD-0% residual stenosis post PCI No evidence of dissection or perforation post PCI MEETA-3 flow post PCI Summary: 1. Ruptured proximal LAD plaque is the culprit for non-ST elevation ID. The remainder of the vessels have no more than mild nonocclusive disease as described. 2. Successful PCI with implantation of a single drug-eluting stent to the LAD. 3. Dual antiplatelet therapy with aspirin 81 mg daily and Brilinta 90 mg p.o. twice daily has been initiated. 4. Guideline directed medical therapy for secondary prevention of coronary disease to include; low-dose aspirin, high intensity statin therapy, beta- natalia, plus or minus JYOTHI inhibitor/ARB as tolerated. Regimen to be determined by primary cardiology team. Hemodynamics Rest Ao:: 128/80 mmHg Final Ao: 148/71 mmHg LV: Not performed Recommendations Recommendations: Medical Therapy and/or Counseling and PCI without planned CABG Radiation Exposure (mGy) 1655 mGy, fluoroscopy time 6.0 minutes Contrast (mls) 150 cc Anesthesia 3 mg Versed, 75 mcg fentanyl IV. Start 10:00, end 10:35 Procedural Complication(s) None Disposition Rubber Goods Cutter Finisher Holding/Recovery I attest to the content of the Intraoperative Record and any orders documented therein. Any exceptions are noted below. [facility] [place] Card Cath Procedure Codes Cardiac Catheterization Procedure 1: Cardiovascular Cath Procedures: 61068 Coronaries Therapeutic Services & Ancillary Procedure 2: Cardiovascular Tx and Anc Procedures: 67618 Ultrasonic Guidance Vascular Access Moderate Sedation Procedure 1: Sedation/Anesthesia: 23764 Mod Sedation by the same physician;Init15 Min Child Age 5 & Up (Initial 15 minutes, start time 10:00) Procedure 2: Sedation/Anesthesia: 01616 Mod Sedation by the same physician; Ea [id number] Minutes (Additional 20 minutes, end time 1035) Stenting Procedure 1: Cardiovascular Stent Procedures: 88984 Perc transcatheter placement of intracoronary stent(s), with ang (LAD) PG Care Time/CCT Total # of Minutes Spent Total Time Spent with Patient: Total time spent is greater than 50% in coordination of care (as documented) at patient's floor/unit and/or counseling patient:
[2025-08-19] MEDS: LABETALOL HCL IV 5 MG/ML 20ML IV STA (12:46)
[2025-08-19] MEDS ORDERED: LABETALOL HCL IV 5 MG/ML 20ML IV PRN (13:05)
[2025-08-19] MEDS: NICOTINE 21 MG/24 HR TDSY TD SCH (13:23)
[2025-08-19] MEDS ORDERED: Nursing to Pharmacy Communication SCH (13:45)
--- NOTE | 2025-08-19 14:23 | XRay Report ---
XR chest 1V portable CLINICAL HISTORY: Shortness of breath. COMPARISON STUDY: Chest radiograph August 18, 2025. FINDINGS: Lung volumes are normal. Lungs are clear. There is no pneumothorax or pleural effusion. Car diac size is normal. Mediastinal contours are normal. There is no evidence for pulmonary edema. IMPRESSION: No acute cardiopulmonary findings. ACT 112: Negative or not required by law. Electronically signed by: Maik Paredes M.D. 08/19/2025 2:22 PM
[2025-08-19 16:12] LABS: ANTI-Xa, UFH(UnfractionatedHep < 0.10 IU/ml (0.3-0.7)
--- NOTE | 2025-08-19 16:35 | Hospitalist Progress Note ---
Date of Service August 19, 2025 Assessment & Plan (1) Chest pain: Plan: 59-year-old male with no significant past medical history except for kidney stones and not on any medications and not been to doctors since last 2 years since his PCP retired comes with chest pain w/ radiation to RUE and neck, 05/07, lasted an hour. Patient had similar kind of episode couple of weeks ago thought to be indigestion and lasted about 1 hour. Chest pain, NSTEMI HFrEF, not in exacerbation Status post single BOY to the LAD 08/19, patient reports improvement in his chest pain. Echo with EF of 45 to 50%, apical anterior akinesis and apical lateral severe hypokinesis noted. IV heparin discontinued. Continue with Plavix and aspirin. A1c of 6.0, LDL of 137. Will start atorvastatin. Monitor over telemetry. Cardiology on board, await further recommendation. GDMT being optimized. Hypertension: Elevated in 200s on presentation, Received IV Lopressor, c/w prn iv labetalol. start metoprolol succinate and add losartan. Tobacco abuse: Counseling done, nicotine patch added. Elevated hemoglobin 18.3: Possibly from smoking, stable/improved. DVT prophylaxis: Hep sc Disposition: Telemetry Full code. Admission and Anticipated Discharge Date Admission Date: August 18, 2025 Subjective Patient was seen and examined at bedside. Patient was lying in bed, on room air, reported some subjective shortness of breath, was saturating at 97% on room air. Likely secondary to Brilinta use. Brilinta discontinued and patient put on Plavix per cardiology. Patient denies any recent flulike illness or fever or cough or sore throat. Patient reports improvement in his chest pain. Patient is status post stent placement today. Physical Exam Physical Exam: General- Not in distress. Head- atraumatic Eyes- PERRL. ENT- oropharynx clear Neck- supple, no JVD. Lungs- clear to auscultation no wheezing or crackles Heart- regular rhythm; no murmur, no gallop. Abdomen- normal bowel sounds, soft, nontender, no distension. Extremities- no pretibial edema, no erythema seen. Neuro- alert, oriented PERRL, no facial palsy; no dysarthria; moves extremities Results & Data Results & Data Vital Signs (Past 12 Hours) Vital Signs Temp Pulse Pulse Resp BP BP BP 08/19/25 15:25 76 135/89 08/19/25 14:45 86 18 141/96 H 08/19/25 14:31 86 18 149/91 H 08/19/25 14:15 78 153/84 H 08/19/25 14:01 77 16 173/80 H 08/19/25 13:45 76 18 173/80 H 08/19/25 13:30 08/19/25 13:30 76 18 165/96 H 08/19/25 13:15 77 18 180/61 H 08/19/25 13:00 78 162/94 H 08/19/25 13:00 78 18 162/94 H 08/19/25 12:49 79 18 192/81 H 08/19/25 12:39 36.6 C 82 18 181/117 H 08/19/25 12:00 82 18 195/69 H 08/19/25 11:45 77 18 161/95 H 08/19/25 11:30 79 18 177/96 H 08/19/25 11:15 75 18 167/90 H 08/19/25 11:00 70 18 188/92 H 08/19/25 10:50 18 183/92 H 08/19/25 09:18 69 18 157/83 H 08/19/25 09:00 69 16 154/89 H 08/19/25 08:05 70 122/67 08/19/25 07:49 69 08/19/25 06:05 72 20 136/78 Pulse Ox O2 Del Method O2 Flow Rate 08/19/25 15:25 97 Nasal Cannula 2 08/19/25 14:45 97 Nasal Cannula 2 08/19/25 14:31 98 Nasal Cannula 2 08/19/25 14:15 08/19/25 14:01 97 Nasal Cannula 2 08/19/25 13:45 97 Nasal Cannula 2 08/19/25 13:30 Room Air 08/19/25 13:30 96 Room Air 08/19/25 13:15 97 Room Air 08/19/25 13:00 08/19/25 13:00 98 Room Air 08/19/25 12:49 98 Room Air 08/19/25 12:39 98 Room Air 08/19/25 12:00 97 Room Air 08/19/25 11:45 96 Room Air 08/19/25 11:30 96 Room Air 08/19/25 11:15 96 Room Air 08/19/25 11:00 96 Room Air 08/19/25 10:50 95 Room Air 08/19/25 09:18 94 Room Air 08/19/25 09:00 94 Room Air 08/19/25 08:05 08/19/25 07:49 08/19/25 06:05 93 Room Air
--- NOTE | 2025-08-19 18:44 | Electrocardiogram Report ---
Test Reason : Blood Pressure : */* mmHG Vent. Rate : 99 BPM Atrial Rate : 99 BPM P-R Int : 124 ms QRS Dur : 94 ms QT Int : 372 ms P-R-T Axes : 58 81 65 degrees QTcB Int : 477 ms Normal sinus rhythm Normal ECG Confirmed by Markel Dutta ([id number]) on 08/19/2025 6:44:27 PM Referred By: REFERRED SELF Confirmed By: Markel Dutta
--- NOTE | 2025-08-19 18:48 | Electrocardiogram Report ---
Test Reason : Blood Pressure : */* mmHG Vent. Rate : 69 BPM Atrial Rate : 69 BPM P-R Int : 134 ms QRS Dur : 92 ms QT Int : 436 ms P-R-T Axes : 67 83 99 degrees QTcB Int : 467 ms Poor data quality, interpretation may be adversely affected Normal sinus rhythm T wave abnormality, consider anterolateral ischemia Prolonged QT Abnormal ECG When compared with ECG of 18-Aug-2025 19:24, (unconfirmed) T wave inversion now evident in Anterolateral leads Confirmed by Markel Dutta ([id number]) on 08/19/2025 6:48:23 PM Referred By: REFERRED SELF Confirmed By: Markel Dutta
--- NOTE | 2025-08-19 18:50 | Electrocardiogram Report ---
Test Reason : Blood Pressure : */* mmHG Vent. Rate : 75 BPM Atrial Rate : 75 BPM P-R Int : 142 ms QRS Dur : 90 ms QT Int : 434 ms P-R-T Axes : 60 78 101 degrees QTcB Int : 484 ms Normal sinus rhythm T wave abnormality, consider anterolateral ischemia Prolonged QT Abnormal ECG When compared with ECG of 19-Aug-2025 09:10, (unconfirmed) No significant change was found Confirmed by Markel Dutta ([id number]) on 08/19/2025 6:50:10 PM Referred By: REFERRED SELF Confirmed By: Markel Dutat
[2025-08-19] MEDS: CALCIUM CARBONATE 500 MG CHEWABLE TAB PO PRN (19:42)
[2025-08-19] MEDS: ATORVASTATIN 40 MG TAB PO SCH (20:40)
[2025-08-19] MEDS: LOSARTAN POTASSIUM 25 MG TAB PO SCH (20:40)
[2025-08-19] MEDS: CLOPIDOGREL BISULFATE 300 MG TAB PO ONE (20:40)
[2025-08-19] MEDS ORDERED: TICAGRELOR 90 MG TAB PO SCH (21:00)
[2025-08-20 06:05] LABS: Hematocrit (blood only) 49.5 % (42.0-52.0); Hemoglobin 16.8 g/dL (14.0-18.0); Mean Corpuscular Hemoglobin 30.0 pg (25.0-34.0); Mean Corpuscular Volume 88.4 fL (80.0-100.0); Platelet Count 284 K/uL (130-400); RDW Standard Deviation 45.6 fL (36.4-46.3); Red Blood Count 5.60 M/uL (4.70-6.10); White Blood Count 10.53 K/ul (4.8-10.8)
[2025-08-20 06:42] LABS: Anion Gap 9.0 (3-11); Blood Urea Nitrogen 14.0 mg/dl (6-23); Calcium 8.7 mg/dl (8.6-10.3); Carbon Dioxide 24.0 mmol/L (21-32); Chloride 105.0 mmol/L (98-107); Creatinine Clr Calc Pharmacy 134.5 ml/min; Glucose 106.0 mg/dl (70-99(Fasting)); Magnesium 2.0 mg/dl (1.7-2.4); Potassium 4.0 mmol/L (3.5-5.1); Sodium 138.0 mmol/L (136-145)
[2025-08-20] MEDS: CLOPIDOGREL BISULFATE 75 MG TAB PO SCH (08:01)
[2025-08-20] MEDS: METOPROLOL SUCC 25MG EXT REL TAB PO SCH ×2 (08:01→20:11)
[2025-08-20] MEDS: REMOVE NICODERM PATCH SCH (08:02)
--- NOTE | 2025-08-20 10:58 | Electrocardiogram Report ---
Test Reason : Blood Pressure : */* mmHG Vent. Rate : 78 BPM Atrial Rate : 78 BPM P-R Int : 136 ms QRS Dur : 92 ms QT Int : 478 ms P-R-T Axes : 58 78 139 degrees QTcB Int : 544 ms Normal sinus rhythm Prolonged QT Abnormal ECG When compared with ECG of 19-Aug-2025 10:58, T wave inversion more evident in Anterolateral leads QT has lengthened Confirmed by Markel Dutta ([id number]) on 08/20/2025 10:58:15 AM Referred By: REFERRED SELF Confirmed By: Markel Dutta
--- NOTE | 2025-08-20 16:20 | Hospitalist Progress Note ---
Date of Service August 20, 2025 Assessment & Plan (1) Chest pain: Plan: 59-year-old male with no significant past medical history except for kidney stones and not on any medications and not been to doctors since last 2 years since his PCP retired comes with chest pain w/ radiation to RUE and neck, 05/07, lasted an hour. Patient had similar kind of episode couple of weeks ago thought to be indigestion and lasted about 1 hour. Chest pain, NSTEMI HFrEF, not in exacerbation Status post single BOY to the LAD 08/19, patient reports improvement in his chest pain. Echo with EF of 45 to 50%, apical anterior akinesis and apical lateral severe hypokinesis noted. Continue with Plavix and aspirin. A1c of 6.0, LDL of 137. c/w atorvastatin. Monitor over telemetry. Cardiology on board, await further recommendation. GDMT being optimized. Hypertension: Elevated in 200s on presentation, Received IV Lopressor, c/w prn iv labetalol. c/w metoprolol succinate and add losartan. Tobacco abuse: Counseling done, nicotine patch added. Elevated hemoglobin 18.3: Possibly from smoking, stable/improved. DVT prophylaxis: Hep sc Disposition: Telemetry, dc w/ clearance from cardiology Full code. Admission and Anticipated Discharge Date Admission Date: August 18, 2025 Subjective Patient was seen and examined at bedside. Patient was lying in bed, on room air, NAD Patient denies any recent flulike illness or fever or cough or sore throat. Patient reports no chest pain. Patient is status post stent placement 08/19. Physical Exam Physical Exam: General- Not in distress. Head- atraumatic Eyes- PERRL. ENT- oropharynx clear Neck- supple, no JVD. Lungs- clear to auscultation no wheezing or crackles Heart- regular rhythm; no murmur, no gallop. Abdomen- normal bowel sounds, soft, nontender, no distension. Extremities- no pretibial edema, no erythema seen. Neuro- alert, oriented PERRL, no facial palsy; no dysarthria; moves extremities Results & Data Results & Data Vital Signs (Past 12 Hours) Vital Signs Temp Pulse Pulse Resp BP Pulse Ox O2 Del Method 08/20/25 15:52 36.6 C 79 16 156/83 H 95 Room Air 08/20/25 15:19 Room Air 08/20/25 12:09 74 08/20/25 11:22 36.6 C 72 16 165/96 H 97 Room Air 08/20/25 07:59 85 16 165/90 H 97 Room Air 08/20/25 07:45 85 08/20/25 07:43 Room Air 08/20/25 07:27 36.7 C 81 18 182/84 H 96 Room Air
--- NOTE | 2025-08-20 17:16 | Cardiology Progress Note ---
Date of Service August 20, 2025 Assessment & Plan (1) NSTEMI (non-ST elevated myocardial infarction): (2) Elevated troponin I level: (3) Chest pain: (4) Hypertension: Plan Patient is a 59 year old male admitted to [facility] after substernal chest pain/pressure radiating down both arms. No acute ischemic EKG changes. No ST elevation. Elevated troponin noted, peaking at 225. Started on IV heparin. Echo with mildly reduced LVEF with apical anterior and apical lateral wall m otion abnormality concerning for ischemic heart disease Uncontrolled hypertension also noted on arrival, improving with IV metoprolol and nitro paste NSTEMI CAD S/P PCI HTN - accelerated - improving HLD ASA, Plavix, statin metoprolol xl Losartan adjust anti-HTN meds keeping systolic BP between 100-140 mmHg DVT prophylaxis smoking cessation salt restricted diet GDMT for CAD Continue telemetry Admission and Anticipated Discharge Date Admission Date: August 18, 2025 Subjective Patient on exam is lying in bed in NAD; no c/o cp, sob, palpitations, dizziness, LOC family at bedside s/p PCI on 08/19/25 Review of Systems Review of Systems: as per hpi Physical Exam Constitutional: WD/WN, vitals as above average body habitus; no acute distress Neck: trachea midline, no thyromegaly + thick neck Respiratory: normal respiratory effort; no labored breathing Auscultation: lungs clear to auscultation bilaterally and + diminished lung sounds Gastrointestinal (Abdomen): normal bowel sounds, soft, nontender, no hepatosplenomegaly Neurologic: PERRL, EOMI, accommodation nl, no face palsy, no dysarthria Psychiatric: A+Ox3, euthymic affect Results & Data Vital Signs (Past 12 Hours) Vital Signs Vital Signs Temp 36.6 C 08/20/25 15:52 Pulse 79 08/20/25 15:52 Resp 16 08/20/25 15:52 BP 156/83 H 08/20/25 15:52 Pulse Ox 95 08/20/25 15:52 O2 Del Method Room Air 08/20/25 15:52 O2 Flow Rate 2 08/19/25 18:09 Intake & Output 08/19/25 08/20/25 08/20/25 18:59 06:59 18:59 Intake Total 669.416 / 669.416 860 / 860 Output Total 800 / 800 Balance -130.584 / -130.584 859 / 859 Weight 106 kg Intake: IV 369.416 / 369.416 Heparin 89281 Unit/500 ml D5w 369.416 / 369.416 25,000 units In 500 ml @ 1,550 UNITS/HR 31 mls/hr IV .[id number] NAT Rx#:[id number] Oral 300 / 300 860 / 860 Output: Urine 800 / 800 # Bowel Movements Other: Other Intake Source NPO # Unmeasured Voids 1 4 Weight Measurement Method Built in [facility] Temp Pulse Pulse Resp BP Pulse Ox O2 Del Method 08/20/25 15:52 36.6 C 79 16 156/83 H 95 Room Air 08/20/25 15:19 Room Air 08/20/25 12:09 74 08/20/25 11:22 36.6 C 72 16 165/96 H 97 Room Air 08/20/25 07:59 85 16 165/90 H 97 Room Air 08/20/25 07:45 85 08/20/25 07:43 Room Air 08/20/25 07:27 36.7 C 81 18 182/84 H 96 Room Air Laboratory Results Laboratory Results WBC 10.53 K/ul (4.8-10.8) 08/20/25 05:32 RBC 5.60 M/uL (4.70-6.10) 08/20/25 05:32 Hgb 16.8 g/dL (14.0-18.0) 08/20/25 05:32 Hct 49.5 % (42.0-52.0) 08/20/25 05:32 MCV 88.4 fL (80.0-100.0) 08/20/25 05:32 MCH 30.0 pg (25.0-34.0) 08/20/25 05:32 MCHC 33.9 g/dL (32.0-36.0) 08/20/25 05:32 RDW Std Deviation 45.6 fL (36.4-46.3) 08/20/25 05:32 RDW Coeff of [place] 14.1 % (11.5-14.5) 08/20/25 05:32 Plt Count 284 K/uL (130-400) 08/20/25 05:32 MPV 9.7 fL (9.4-12.4) 08/20/25 05:32 Immature Gran % (Auto) 0.4 % 08/19/25 04:30 Neut % (Auto) 48.8 % 08/19/25 04:30 Lymph % (Auto) 39.6 % 08/19/25 04:30 Ware % (Auto) 6.2 % 08/19/25 04:30 Eos % (Auto) 4.3 % 08/19/25 04:30 Baso % (Auto) 0.7 % 08/19/25 04:30 Neut # (Auto) 5.34 K/uL (1.40-6.50) 08/19/25 04:30 Lymph # (Auto) 4.33 K/uL (1.20-3.40) H 08/19/25 04:30 Ware # (Auto) 0.68 K/uL (0.11-0.59) H 08/19/25 04:30 Eos # (Auto) 0.47 K/uL (0.00-0.50) 08/19/25 04:30 Baso # (Auto) 0.08 K/uL (0.00-0.20) 08/19/25 04:30 Immature Gran # (Auto) 0.04 K/uL (0.01-0.20) 08/19/25 04:30 PT 9.8 Seconds (9.0-12.0) 08/18/25 19:35 INR 0.9 (0.9-1.1) 08/18/25 19:35 APTT 28 Seconds (21-31) 08/18/25 19:35 PTT Ratio 1.0 08/18/25 19:35 Activ Coag Time Kaolin 266 SECONDS (94-140) H 08/19/25 10:34 Heparin Anti-Xa, Unfract < 0.10 IU/ml (0.3-0.7) L 08/19/25 15:18 Sodium 138 mmol/L (136-145) 08/20/25 05:32 Potassium 4.0 mmol/L (3.5-5.1) 08/20/25 05:32 Chloride 105 mmol/L (98-107) 08/20/25 05:32 Carbon Dioxide 24 mmol/L (21-32) 08/20/25 05:32 Anion Gap 9 (3-11) 08/20/25 05:32 BUN 14 mg/dl (6-23) 08/20/25 05:32 Creatinine 0.73 mg/dl (0.6-1.4) 08/20/25 05:32 Est Cr Clr Drug Dosing 134.5 ml/min 08/20/25 05:32 eGFR 105.46 08/20/25 05:32 BUN/Creatinine Ratio 19.2 (10-20) 08/20/25 05:32 Glucose 106 mg/dl (70-99(Fasting)) H 08/20/25 05:32 Estimat Average Glucose 126 mg/dl 08/19/25 04:30 Hemoglobin A1c 6.0 % (4.5-5.6) H 08/19/25 04:30 Calcium 8.7 mg/dl (8.6-10.3) 08/20/25 05:32 Phosphorus 3.1 mg/dl (2.5-4.9) 08/20/25 05:32 Magnesium 2.0 mg/dl (1.7-2.4) 08/20/25 05:32 Total Bilirubin 0.4 mg/dl (0.2-1.0) 08/18/25 19:35 AST 17 U/L (13-39) 08/18/25 19:35 ALT 20 U/L (7-52) 08/18/25 19:35 Alkaline Phosphatase 57 U/L (34-104) 08/18/25 19:35 Troponin I High Sens 86.6 pg/ml (0-20) H* 08/19/25 17:27 Total Protein 7.8 gm/dl (6.0-8.3) 08/18/25 19:35 Albumin 4.2 gm/dl (3.4-5.0) 08/18/25 19:35 Globulin 3.6 gm/dl (2.5-4.0) 08/18/25 19:35 Albumin/Globulin Ratio 1.2 (0.9-2) 08/18/25 19:35 Triglycerides 195 mg/dl (0-150) H 08/19/25 04:30 Cholesterol 205 mg/dl (0-200) H 08/19/25 04:30 LDL Cholesterol, Calc 137 mg/dl 08/19/25 04:30 VLDL Cholesterol, Calc 39 mg/dl (0-30) H 08/19/25 04:30 HDL Cholesterol 29 mg/dl 08/19/25 04:30 Cholesterol/HDL Ratio 7.1 (0-5) H 08/19/25 04:30 Impressions Chest X-Ray 08/19/25 13:46 XR chest 1V portable CLINICAL HISTORY: Shortness of breath. COMPARISON STUDY: Chest radiograph August 18, 2025. FINDINGS: Lung volumes are normal. Lungs are clear. There is no pneumothorax or pleural effusion. Cardiac size is normal. Mediastinal contours are normal. There is no evidence for pulmonary edema. IMPRESSION: No acute cardiopulmonary findings. ACT 112: Negative or not required by law. Electronically signed by: Maik Paredes M.D. 08/19/2025 2:22 PM Diagnostic Findings Cardiac Enzymes 08/19/25 Range/Units 17:27 Troponin I High Sens 86.6 H* (0-20) pg/ml CBC 08/20/25 Range/Units 05:32 WBC 10.53 (4.8-10.8) K/ul RBC 5.60 (4.70-6.10) M/uL Hgb 16.8 (14.0-18.0) g/dL Hct 49.5 (42.0-52.0) % Plt Count 284 (130-400) K/uL Comprehensive Metabolic Panel 08/20/25 Range/Units 05:32 Sodium 138 (136-145) mmol/L Potassium 4.0 (3.5-5.1) mmol/L Chloride 105 (98-107) mmol/L Carbon Dioxide 24 (21-32) mmol/L BUN 14 (6-23) mg/dl Creatinine 0.73 (0.6-1.4) mg/dl Glucose 106 H (70-99(Fasting)) mg/dl Calcium 8.7 (8.6-10.3) mg/dl Intake and Output 08/20/25 08/20/25 08/20/25 06:59 14:59 22:59 Intake Total 860 / 860 Output Total Balance 859 / 859 Intake: Oral 860 / 860 Output: # Bowel Movements Other: Other Intake Source NPO # Unmeasured Voids 1 4 Weight 106 kg Weight Measurement Method Built in [facility] Medications Administered Home Medications Medication Instructions Recorded Confirmed Last Taken None (Patient States No Home Meds) ##0 01/14/12 Unknown Active Medications Generic Name Dose Route Start Last Admin Trade Name Freq PRN Reason Stop Dose Admin Acetaminophen 650 mg 08/18/25 22:43 08/19/25 19:42 Acetaminophen 325 Mg Tab PO 09/17/25 22:42 650 mg Q4H PRN Administration Pain or Fever Aspirin 81 mg 08/19/25 09:00 08/20/25 08:00 Aspirin 81 Mg Ectab PO 09/18/25 08:59 81 mg QAM NAT Administration Atorvastatin Calcium 40 mg 08/19/25 21:00 08/19/25 20:40 Atorvastatin 40 Mg Tab PO 09/18/25 20:59 40 mg HS NAT Administration Calcium Carbonate 500 mg 08/19/25 19:37 08/19/25 19:42 Calcium Carbonate 500 Mg Chewable Tab PO 09/18/25 19:36 500 mg BID PRN Administration Heartburn Clopidogrel Bisulfate 75 mg 08/20/25 09:00 08/20/25 08:01 Clopidogrel Bisulfate 75 Mg Tab PO 09/19/25 08:59 75 mg QAM NAT Administration Losartan Potassium 25 mg 08/19/25 21:00 08/19/25 20:40 Losartan Potassium 25 Mg Tab PO 09/18/25 20:59 25 mg HS NAT Administration Metoprolol Succinate 25 mg 08/20/25 09:00 08/20/25 08:01 Metoprolol Succ 25mg Ext Rel Tab PO 09/19/25 08:59 25 mg QAM NAT Administration Miscellaneous 1 each 08/20/25 08:59 08/20/25 08:02 Remove Nicoderm Patch N/A 09/19/25 08:58 1 each DAILY@0859 NAT Administration Nicotine 1 patch 08/19/25 13:15 08/20/25 08:00 Nicotine 21 Mg/24 Hr Tdsy TD 09/18/25 13:14 1 patch QAM NAT Administration PG Care Time/CCT Total # of Minutes Spent Total Time Spent with Patient: Total time spent is greater than 50% in coordination of care (as documented) at patient's floor/unit and/or counseling patient: Coding Level of Care Code 99397 SUB INP/OBS CARE 3/50MIN Diagnoses NSTEMI (non-ST elevated myocardial infarction) I21.4 Elevated troponin I level R79.89 Chest pain R07.9 Hypertension I10
[2025-08-20] MEDS: HEPARIN SOD 5,000 UNIT/0.5 ML VIAL SQ SCH (20:10)
[2025-08-20] MEDS: LOSARTAN POTASSIUM 25 MG TAB PO SCH (20:11)
[2025-08-21 04:39] VITALS: RESP 18
[2025-08-21 07:02] LABS: Anion Gap 9.0 (3-11); Blood Urea Nitrogen 15.0 mg/dl (6-23); Calcium 8.8 mg/dl (8.6-10.3); Carbon Dioxide 24.0 mmol/L (21-32); Chloride 104.0 mmol/L (98-107); Creatinine Clr Calc Pharmacy 130.9 ml/min; Glucose 105.0 mg/dl (70-99(Fasting)); Magnesium 2.0 mg/dl (1.7-2.4); Potassium 4.2 mmol/L (3.5-5.1); Sodium 137.0 mmol/L (136-145)
[2025-08-21 08:17] VITALS: BP 135/90; TEMP 97.5; O2SAT 94
--- NOTE | 2025-08-21 11:15 | Cardiology Progress Note ---
Date of Service August 21, 2025 Assessment & Plan (1) NSTEMI (non-ST elevated myocardial infarction): (2) Elevated troponin I level: (3) Chest pain: (4) Hypertension: Plan Patient is a 59 year old male admitted to [facility] after substernal chest pain/pressure radiating down both arms. No acute ischemic EKG changes. No ST elevation. Elevated troponin noted, peaking at 225. Started on IV heparin. Echo with mildly reduced LVEF with apical anterior and apical lateral wall m otion abnormality concerning for ischemic heart disease Uncontrolled hypertension also noted on arrival, improving with IV metoprolol and nitro paste NSTEMI CAD S/P PCI HTN - accelerated - improving HLD ASA, Plavix, statin metoprolol xl Losartan salt restricted diet GDMT for CAD stable from cardiac standpoint for discharge f/u with cardiology post discharge DW patient, hospitalist Admission and Anticipated Discharge Date Admission Date: August 18, 2025 Subjective Patient on exam is sitting in chair in NAD; no c/o cp, sob, palpitations, dizziness, LOC ambulatory with no sx s/p PCI on 08/19/25 Review of Systems Review of Systems: as per hpi Physical Exam Constitutional: WD/WN, vitals as above average body habitus; no acute distress Neck: trachea midline, no thyromegaly + thick neck Respiratory: normal respiratory effort; no labored breathing Auscultation: lungs clear to auscultation bilaterally and + diminished lung sounds Gastrointestinal (Abdomen): normal bowel sounds, soft, nontender, no hepatosplenomegaly Neurologic: PERRL, EOMI, accommodation nl, no face palsy, no dysarthria Psychiatric: A+Ox3, euthymic affect Results & Data Vital Signs (Past 12 Hours) Vital Signs Temp 36.4 C L 08/21/25 12:15 Pulse 87 08/21/25 12:15 Resp 18 08/21/25 12:15 BP 135/90 08/21/25 12:15 Pulse Ox 94 08/21/25 12:15 O2 Del Method Room Air 08/21/25 08:16 O2 Flow Rate 2 08/19/25 18:09 Intake & Output 08/20/25 08/21/25 08/21/25 18:59 06:59 18:59 Intake Total 1160 / 1710 550 / 1710 Output Total Balance 1159 / 1709 550 / 1709 Weight 102.5 kg 102.5 kg Intake: Oral 1160 / 1710 550 / 1710 Output: # Bowel Movements 1 / Other: # Unmeasured Voids 2 1 Weight Measurement Method Standing Scale Vital Signs Temp Pulse Pulse Resp BP Pulse Ox O2 Del Method 08/21/25 08:16 36.4 C L 87 18 135/90 94 Room Air 08/21/25 05:37 73 08/21/25 03:14 36.6 C 76 18 132/80 95 Room Air Laboratory Results Laboratory Results WBC 10.53 K/ul (4.8-10.8) 08/20/25 05:32 RBC 5.60 M/uL (4.70-6.10) 08/20/25 05:32 Hgb 16.8 g/dL (14.0-18.0) 08/20/25 05:32 Hct 49.5 % (42.0-52.0) 08/20/25 05:32 MCV 88.4 fL (80.0-100.0) 08/20/25 05:32 MCH 30.0 pg (25.0-34.0) 08/20/25 05:32 MCHC 33.9 g/dL (32.0-36.0) 08/20/25 05:32 RDW Std Deviation 45.6 fL (36.4-46.3) 08/20/25 05:32 RDW Coeff of [place] 14.1 % (11.5-14.5) 08/20/25 05:32 Plt Count 284 K/uL (130-400) 08/20/25 05:32 MPV 9.7 fL (9.4-12.4) 08/20/25 05:32 Immature Gran % (Auto) 0.4 % 08/19/25 04:30 Neut % (Auto) 48.8 % 08/19/25 04:30 Lymph % (Auto) 39.6 % 08/19/25 04:30 [place] % (Auto) 6.2 % 08/19/25 04:30 Eos % (Auto) 4.3 % 08/19/25 04:30 Baso % (Auto) 0.7 % 08/19/25 04:30 Neut # (Auto) 5.34 K/uL (1.40-6.50) 08/19/25 04:30 Lymph # (Auto) 4.33 K/uL (1.20-3.40) H 08/19/25 04:30 [place] # (Auto) 0.68 K/uL (0.11-0.59) H 08/19/25 04:30 Eos # (Auto) 0.47 K/uL (0.00-0.50) 08/19/25 04:30 Baso # (Auto) 0.08 K/uL (0.00-0.20) 08/19/25 04:30 Immature Gran # (Auto) 0.04 K/uL (0.01-0.20) 08/19/25 04:30 PT 9.8 Seconds (9.0-12.0) 08/18/25 19:35 INR 0.9 (0.9-1.1) 08/18/25 19:35 APTT 28 Seconds (21-31) 08/18/25 19:35 PTT Ratio 1.0 08/18/25 19:35 Activ Coag Time Kaolin 266 SECONDS (94-140) H 08/19/25 10:34 Heparin Anti-Xa, Unfract < 0.10 IU/ml (0.3-0.7) L 08/19/25 15:18 Sodium 137 mmol/L (136-145) 08/21/25 05:33 Potassium 4.2 mmol/L (3.5-5.1) 08/21/25 05:33 Chloride 104 mmol/L (98-107) 08/21/25 05:33 Carbon Dioxide 24 mmol/L (21-32) 08/21/25 05:33 Anion Gap 9 (3-11) 08/21/25 05:33 BUN 15 mg/dl (6-23) 08/21/25 05:33 Creatinine 0.75 mg/dl (0.6-1.4) 08/21/25 05:33 Est Cr Clr Drug Dosing 130.9 ml/min 08/21/25 05:33 eGFR 104.60 08/21/25 05:33 BUN/Creatinine Ratio 20.0 (10-20) 08/21/25 05:33 Glucose 105 mg/dl (70-99(Fasting)) H 08/21/25 05:33 Estimat Average Glucose 126 mg/dl 08/19/25 04:30 Hemoglobin A1c 6.0 % (4.5-5.6) H 08/19/25 04:30 Calcium 8.8 mg/dl (8.6-10.3) 08/21/25 05:33 Phosphorus 3.1 mg/dl (2.5-4.9) 08/20/25 05:32 Magnesium 2.0 mg/dl (1.7-2.4) 08/21/25 05:33 Total Bilirubin 0.4 mg/dl (0.2-1.0) 08/18/25 19:35 AST 17 U/L (13-39) 08/18/25 19:35 ALT 20 U/L (7-52) 08/18/25 19:35 Alkaline Phosphatase 57 U/L (34-104) 08/18/25 19:35 Troponin I High Sens 86.6 pg/ml (0-20) H* 08/19/25 17:27 Total Protein 7.8 gm/dl (6.0-8.3) 08/18/25 19:35 Albumin 4.2 gm/dl (3.4-5.0) 08/18/25 19:35 Globulin 3.6 gm/dl (2.5-4.0) 08/18/25 19:35 Albumin/Globulin Ratio 1.2 (0.9-2) 08/18/25 19:35 Triglycerides 195 mg/dl (0-150) H 08/19/25 04:30 Cholesterol 205 mg/dl (0-200) H 08/19/25 04:30 LDL Cholesterol, Calc 137 mg/dl 08/19/25 04:30 VLDL Cholesterol, Calc 39 mg/dl (0-30) H 08/19/25 04:30 HDL Cholesterol 29 mg/dl 08/19/25 04:30 Cholesterol/HDL Ratio 7.1 (0-5) H 08/19/25 04:30 Impressions Chest X-Ray 08/19/25 13:46 XR chest 1V portable CLINICAL HISTORY: Shortness of breath. COMPARISON STUDY: Chest radiograph August 18, 2025. FINDINGS: Lung volumes are normal. Lungs are clear. There is no pneumothorax or pleural effusion. Cardiac size is normal. Mediastinal contours are normal. There is no evidence for pulmonary edema. IMPRESSION: No acute cardiopulmonary findings. ACT 112: Negative or not required by law. Electronically signed by: Maik Paredes M.D. 08/19/2025 2:22 PM Diagnostic Findings Comprehensive Metabolic Panel 08/21/25 Range/Units 05:33 Sodium 137 (136-145) mmol/L Potassium 4.2 (3.5-5.1) mmol/L Chloride 104 (98-107) mmol/L Carbon Dioxide 24 (21-32) mmol/L BUN 15 (6-23) mg/dl Creatinine 0.75 (0.6-1.4) mg/dl Glucose 105 H (70-99(Fasting)) mg/dl Calcium 8.8 (8.6-10.3) mg/dl Intake and Output 08/20/25 08/21/25 08/21/25 22:59 06:59 14:59 Intake Total 300 / 1710 550 / 1710 Balance 300 / 1709 550 / 1709 Intake: Oral 300 / 1710 550 / 1710 Other: # Unmeasured Voids 2 1 Weight 102.5 kg 102.5 kg Weight Measurement Method Standing Scale Patient Weight 08/22/25 06:59 Weight 102.5 kg Medications Administered Home Medications Medication Instructions Recorded Confirmed Last Taken aspirin 81 mg tablet,delayed 81 mg PO QAM #30 tabs 08/21/25 Unknown release atorvastatin 40 mg tablet 40 mg PO HS #30 tabs 08/21/25 Unknown clopidogrel 75 mg tablet 75 mg PO QAM #30 tabs 08/21/25 Unknown losartan 25 mg tablet 25 mg PO BID #60 tabs 08/21/25 Unknown metoprolol succinate 25 mg 25 mg PO BID #60 tabs 08/21/25 Unknown tablet,extended release 24 hr nicotine 21 mg/24 hr daily 1 patch transdermal QAM #28 ea 08/21/25 Unknown transdermal patch (Nicoderm CQ) nitroglycerin 0.4 mg sublingual 0.4 mg sublingual UD PRN chest 08/21/25 Unknown tablet (Nitrostat) pain #10 tabs Active Medications Generic Name Dose Route Start Last Admin Trade Name Freq PRN Reason Stop Dose Admin Acetaminophen 650 mg 08/18/25 22:43 08/21/25 08:14 Acetaminophen 325 Mg Tab PO 09/17/25 22:42 650 mg Q4H PRN Administration Pain or Fever Aspirin 81 mg 08/19/25 09:00 08/21/25 09:06 Aspirin 81 Mg Ectab PO 09/18/25 08:59 81 mg QAM NAT Administration Atorvastatin Calcium 40 mg 08/19/25 21:00 08/20/25 20:11 Atorvastatin 40 Mg Tab PO 09/18/25 20:59 40 mg HS NAT Administration Calcium Carbonate 500 mg 08/19/25 19:37 08/19/25 19:42 Calcium Carbonate 500 Mg Chewable Tab PO 09/18/25 19:36 500 mg BID PRN Administration Heartburn Clopidogrel Bisulfate 75 mg 08/20/25 09:00 08/21/25 09:06 Clopidogrel Bisulfate 75 Mg Tab PO 09/19/25 08:59 75 mg QAM NAT Administration Heparin Sodium (Porcine) 5,000 units 08/20/25 21:00 08/21/25 09:06 Heparin Sod 5,000 Unit/0.5 Ml Vial SQ 09/19/25 20:59 5,000 units Q12 NAT Administration Losartan Potassium 25 mg 08/20/25 21:00 08/21/25 09:06 Losartan Potassium 25 Mg Tab PO 09/19/25 20:59 25 mg BID NAT Administration Metoprolol Succinate 25 mg 08/20/25 21:00 08/21/25 09:06 Metoprolol Succ 25mg Ext Rel Tab PO 09/19/25 20:59 25 mg BID NAT Administration Miscellaneous 1 each 08/20/25 08:59 08/21/25 09:04 Remove Nicoderm Patch N/A 09/19/25 08:58 1 each DAILY@0859 NAT Administration Nicotine 1 patch 08/19/25 13:15 08/21/25 09:04 Nicotine 21 Mg/24 Hr Tdsy TD 09/18/25 13:14 1 patch QAM [facility] Administration PG Care Time/CCT Total # of Minutes Spent Total Time Spent with Patient: Total time spent is greater than 50% in coordination of care (as documented) at patient's floor/unit and/or counseling patient: Coding Level of Care Code 69322 SUB INP/OBS CARE 3/50MIN Diagnoses NSTEMI (non-ST elevated myocardial infarction) I21.4 Elevated troponin I level R79.89 Chest pain R07.9 Hypertension I10
--- NOTE | 2025-08-21 12:13 | Discharge Summary ---
Date of Service August 21, 2025 Admission HPI Per Admitting Provider 59-year-old male with no significant past medical history except for kidney stones and not on any medications and not been to doctors since last 2 years since his PCP retired comes with chest pain. Around 6:30 PM today patient was watching TV when he noticed pain in the middle of the chest radiating to his neck and to his right upper hand and it was about 9/10 in severity. The pain lasted about 1 hour. Currently patient does not have any pain. Patient had similar kind of episode couple of weeks ago thought to be indigestion and lasted about 1 hour. Does not ambulate much because of hip and knee pains. Denies shortness of breath. Has smoker's cough. No runny nose or sore throat. Afebrile. Has some mild headache. During the episode felt dizzy. Somewhat sweaty. No nausea. No abdominal pain. Normal bowel and bladder movements. Blood pressure was high when he came to the ER. And received IV Lopressor. Also received aspirin. Resting comfortably currently. Past medical history. As mentioned above. Past surgical history. No surgeries on file Social history. Smokes 1 pack cigarettes for many years. Denies any alcohol. Smokes marijuana daily. Family history. Father age of 45 probably from heart disease. Mother has hypertension, pacemaker, amputation of both lower extremities from peripheral vascular disease. Admission Exam Per Admitting Provider General- Not in distress. Head- atraumatic Eyes- PERRL. ENT- oropharynx clear Neck- supple, no JVD. Lungs- clear to auscultation no wheezing or crackles Heart- regular rhythm; no murmur, no gallop. Abdomen- normal bowel sounds, soft, nontender, no distension. Extremities- no pretibial edema, no erythema seen. Neuro- alert, oriented PERRL, no facial palsy; no dysarthria; moves extremities Principal Diagnosis Chest pain, NSTEMI HFrEF, not in exacerbation Hypertension Tobacco abuse Discharge Exam General- Not in distress. Head- atraumatic Eyes- PERRL. ENT- oropharynx clear Neck- supple, no JVD. Lungs- clear to auscultation no wheezing or crackles Heart- regular rhythm; no murmur, no gallop. Abdomen- normal bowel sounds, soft, nontender, no distension. Extremities- no pretibial edema, no erythema seen. Neuro- alert, oriented PERRL, no facial palsy; no dysarthria; moves extremities Discharge Data Allergies Allergy/AdvReac Type Severity Reaction Status Date / Time amoxicillin Allergy Mild hives Verified 08/19/25 09:30 poison sumac extract Allergy Unknown Rash Verified 08/19/25 09:30 ticagrelor [From Brilinta] Allergy Difficulty Verified 08/21/25 07:11 Breathing Consultations 08/18/25 21:23 ED Decision to Admit Stat 08/19/25 08:00 Consult Cardiology Routine 08/19/25 10:46 Consult Cardiac Rehabilitation Routine Procedures Performed Operation Date: 08/19/25 09:00 Actual Procedures p Cineradiography w/Routine Exam - Eric Sears MD, PhD p Cath, Coronaries ONLY (no LV) - Eric Sears MD, PhD p Drug Eluting Stent SGl Vessel - Eric Sears MD, PhD Ordered Studies 08/19/25 08:55 CL Cath Imgs for PACS use only Stat Hospital Course (1) Chest pain: 59-year-old male with no significant past medical history except for kidney stones and not on any medications and not been to doctors since last 2 years since his PCP retired comes with chest pain w/ radiation to RUE and neck, 05/07, lasted an hour. Patient had similar kind of episode couple of weeks ago thought to be indigestion and lasted about 1 hour. Chest pain, NSTEMI HFrEF, not in exacerbation Status post single BOY to the LAD 08/19, patient reports improvement in his chest pain. Echo with EF of 45 to 50%, apical anterior akinesis and apical lateral severe hypokinesis noted. Continue with Plavix and aspirin. A1c of 6.0, LDL of 137. c/w atorvastatin. Monitor over telemetry. d/w cardio, ok for dc on current meds. f/u cardio on dc. Hypertension: Elevated in 200s on presentation, Received IV Lopressor, c/w prn iv labetalol. c/w metoprolol succinate and add losartan. BP better controlled. Tobacco abuse: Counseling done, nicotine patch added. Elevated hemoglobin 18.3: Possibly from smoking, stable/improved. DVT prophylaxis: Hep sc Full code. Patient is being discharged home with following instructions at the point of discharge: Follow-up with your primary care physician within a week time and likely you will need labs CBC/CMP/magnesium/phosphorus. You were evaluated by cardiology while in hospital, cardiac medications has been added. it is very important that you maintain strict compliance with cardiac medication to prevent restenosis of your stent. Avoid omeprazole while on Plavix. Follow-up with cardiology in 2 to 4 weeks time open discharge. Recommend that you quit smoking. You were diagnosed with prediabetes [A1c of 6.0], recommend lifestyle modification including daily exercise regimen and weight loss, you will need repeat A1c in 3 months, coordinate with your PCP office to set up the test and for long-term monitoring. Recommend heart healthy diet, less than 2 g of sodium per day [low-salt diet], and fluid restriction of 1.8 L/day. Take your medications as prescribed. Please make sure that you are able to get your medications today by calling your pharmacy before you leave the hospital so that your treatment continuity is not broken. Home Health Attestation I certify that this patient is under my care and that I, or a physicians assistant administrator working with me, had a face to-face encounter that meets the home health [id number] encounter requirements with this patient. The encounter with the patient was in whole, or in part, for the following medical condition, which is the primary reason for home health care (list medical condition): I certify that, based on my findings, the following services are medically necessary home health services: My clinical findings support the need for the above services because: Further, I certify that my clinical findings support that this patient is homebound (i.e. absences from home require considerable and taxing effort and are for medical reasons or scientology services or infrequently or of short duration when for other reasons) because: Certification for Home Health Services: Based on the above findings, I certify that this patient is confined to the home and needs intermittent fci care, physical therapy and/or speech therapy or continues to need occupational therapy. The patient is under my care, and I have initiated the establishment of the plan of care. This patient will be followed by a physician who will periodically review the plan of care. Total Time Total Time Spent Total Time Spent (In Minutes): 35 Discharge Plan Discharge Items Patient Disposition: Home - Self-Care Reason For Visit: CHEST PAIN, ELEVATED TROPONIN Discharge Diagnosis: Chest pain, NSTEMI HFrEF, not in exacerbation Hypertension Tobacco abuse Condition on Discharge: Fair Activity: Resume your previous activity Non-emergency contact: Primary Care Provider Call non-emergency contact if: you have any medication questions and your symptoms worsen Follow-up/Referrals: Darin Metz M.D. [Outside Practitioners] - (Date & Time 08/26/2025 8:00 AM Provider: Darin Metz MD [facility]) PCP,NO [Primary Care Provider] - Diet: Heart Healthy and Low Sodium (2gm) Fluids: 1800ml (7 cups) Addtl Attending Provider Instructions: Follow-up with your primary care physician within a week time and likely you will need labs CBC/CMP/magnesium/phosphorus. You were evaluated by cardiology while in hospital, cardiac medications has been added. it is very important that you maintain strict compliance with cardiac medication to prevent restenosis of your stent. Avoid omeprazole while on Plavix. Follow-up with cardiology in 2 to 4 weeks time open discharge. Recommend that you quit smoking. You were diagnosed with prediabetes [A1c of 6.0], recommend lifestyle modification including daily exercise regimen and weight loss, you will need repeat A1c in 3 months, coordinate with your PCP office to set up the test and for long-term monitoring. Recommend heart healthy diet, less than 2 g of sodium per day [low-salt diet], and fluid restriction of 1.8 L/day. Take your medications as prescribed. Please make sure that you are able to get your medications today by calling your pharmacy before you leave the hospital so that your treatment continuity is not broken. Pending Studies at Discharge: No Stand-Alone Forms: My [facility] [employer], Smoking Cessation Medications and DC Order Prescriptions: New nicotine [Nicoderm CQ] 21 mg/24 hr Patch 24 Hour 1 patch transdermal QAM Qty: 28 0RF atorvastatin 40 mg Tablet 40 mg PO HS Qty: 30 0RF clopidogrel 75 mg Tablet 75 mg PO QAM Qty: 30 0RF losartan 25 mg Tablet 25 mg PO BID Qty: 60 0RF nitroglycerin [Nitrostat] 0.4 mg Tablet, Sublingual 0.4 mg sublingual UD PRN (Reason: chest pain) Qty: 10 0RF metoprolol succinate 25 mg Tablet Extended Release 24 Hr 25 mg PO BID Qty: 60 0RF aspirin 81 mg Tablet,Delayed Release (Dr/Ec) 81 mg PO QAM Qty: 30 0RF Discontinued None (Patient States No Home Meds) . Qty: 0 Discharge Orders: Discharge Order- CHF (Routine); Ordered 08/21/25 Ordered By: Richa Cox/Sharri Patient Handouts: Prediabetes, 5 Steps for Eating Healthier Admission Data Admit Date/Time: 08/18/25 22:38 Attending Provider: Richa Sanchez Admit Provider: Jorden Damico Primary Care Provider: PCP,NO Other Providers: Jorden Damico; Sue Lovell; Eric Patterson; Ivan Mitchell; Oswaldo Epps; Stepan Jesus; Jr Austin; Maria De Jesus Agarwal; Eva Milian; Alice Rosario; Marcelina Wise; Sue Dave; Jose Sanchez; Darrel Felipe; Barbara Castano; Fabiola Larson; Emma Sánchez; Zeke Hurtado; Mc Lord; Joyce Mitchell; Klarissa Mcgee; Markel Longo; Ray Sanderson; Mallory Blount
[2025-08-21 12:17] VITALS: PULSE 87
== END 2025-08-21 13:46 | disposition home or self-care (01) | DRG 322 ==
LOC: ED 19:09 → EDINP 22:38 → SUATTDRO 22:38 → EDINP 08-19 09:59 → 4W 08-19 12:34
PROC: CLB.CCO (2025-08-19 09:00)